=== PATIENT | female | born 1990 | race Caucasian/White ===

== ENCOUNTER 2020-11-15 01:15 | Inpatient (IN) ==
[2020-11-15] MEDS ORDERED: OXYTOCIN 30 UNITS/500 ML BAG IV PRN ×2 (02:12→08:09)
[2020-11-15 02:52] LABS: Hematocrit (blood only) 39.1 % (37-47); Hemoglobin 14.5 g/dL (12.0-16.0); Mean Corpuscular Hemoglobin 32.1 pg (25-34); Mean Corpuscular Hgb Conc 37.1 g/dL (32-36); Mean Corpuscular Volume 86.5 fL (80-100); Mean Platelet Volume 10.4 fL (7.4-10.4); Platelet Count 214 K/uL (130-400); RDW Coefficient of Variation 13.8 % (11.5-14.5); RDW Standard Deviation 42.6 fL (36.4-46.3); Red Blood Count 4.52 M/uL (4.2-5.4); White Blood Count 13.51 K/uL (4.8-10.8)
[2020-11-15] MEDS: LACTATED RINGER'S 1,000 ML IV PRN ×3 (07:28→15:11)
--- NOTE | 2020-11-15 08:03 | History & Physical Report ---
Date of Service November 15, 2020 Assessment & Plan (1) Premature rupture of membranes: Plan: 29-year-old G1, P0 at 39 weeks and 4 days of gestation presenting with premature rupture of membranes at term, vital signs stable afebrile, heart rate reassuring, GBS is negative, coronavirus testing is negative, Cervix is unfavorable, Discussed ripening of cervix with misoprostol versus starting IV oxytocin. Patient agrees with IV oxytocin and once for epidural for pain, All questions were answered, Continue to monitor closely. Admission and Anticipated Discharge Date Admission Date: November 15, 2020 History of Present Illness Primary Care Provider: Itzel Argueta MD Patient is a 29-year-old G1, P0 at 39 weeks and 4 days of gestation who was admitted by Dr. Driver for premature rupture of membranes at term. Patient had a big gush of clear fluid leaking at around midnight and kept tr ickling clear fluids. She denies vaginal bleeding, contractions, cramping nor abdominal pain. She denies fever, chills, nausea, vomiting, headaches or change in her vision. She reports good movements. Her has been uncomplicated. She has a history of intracranial hypertension with spontaneous leakage in 2014. It resolved on its own and she was cleared for epidural anesthesia if needed during labor. She has a history of cardiac ablation and follow-up exams are normal. GBS is negative. 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) Intracranial hypotension Dx 2015 r/t presumed spontaneous spinal fluid leak (per neurology, no radiographic evidence but did have strong clinical signs of intracranial hypotension) Kidney stone Surgical History History of colonoscopy History of radiofrequency ablation procedure for cardiac arrhythmia History of wisdom tooth extraction Social History Smoking Status: Never smoker Hx Alcohol Use: No Hx Substance Use: No Preferred Language: [place] Beliefs That Will Affect Care: None marital status: Current Living Situation: Spouse Other Information That Helps Us Care for You: No Feels Safe at Home: Yes Safety Concerns: Feels Safe At This Time Assistive Devices: None [employer] History No history of STDs, no history of genital herpes, chlamydia, gonorrhea. Review of Systems as per Subjective / HPI Physical Exam Constitutional: WD/WN, vitals as above well developed and well nourished Gastrointestinal (Abdomen): normal bowel sounds, soft, nontender, no hepatosplenomegaly (Gravid, bedside ultrasound is vertex, EFW 7-8 pounds) Genitourinary: normal external appearance OB Exam Abdomen: + vertex Manual OB Exam: + cervical dilation 1 cm, + cervical effacement 30% and + station (-3) OB Exam Monitor Tracing: + external uterine monitor used and + category I Results & Data ([facility]) Vital Signs (Past 12 Hours) Vital Signs Temp Pulse Resp BP 11/15/20 07:01 36.8 C 18 11/15/20 07:00 89 119/72 11/15/20 05:45 36.5 C 18 11/15/20 03:43 36.4 C L 11/15/20 01:38 36.9 C 18 11/15/20 01:29 89 119/71 Laboratory Results Lab Results 11/15/20 11/15/20 11/15/20 Range/Units 02:10 02:10 02:43 WBC 13.51 H (4.8-10.8) K/uL RBC 4.52 (4.2-5.4) M/uL Hgb 14.5 (12.0-16.0) g/dL Hct 39.1 (37-47) % MCV 86.5 (80-100) fL MCH 32.1 (25-34) pg MCHC 37.1 H (32-36) g/dL RDW Std Deviation 42.6 (36.4-46.3) fL RDW Coeff of Ananth 13.8 (11.5-14.5) % Plt Count 214 (130-400) K/uL MPV 10.4 (7.4-10.4) fL COVID-19 Eval [facility] SARS-CoV-2, RNA, NAAT NEGATIVE (NEGATIVE)
[2020-11-15] MEDS ORDERED: BUTORPHANOL TARTRATE 1 MG/ML VIAL IV PRN (08:09)
[2020-11-15] MEDS ORDERED: ONDANSETRON INJ 2 MG/ML 2 ML VIAL IV PRN (08:10)
[2020-11-15] MEDS ORDERED: ePHEDrine sulfate 50 MG/ML AMP ONE (14:14)
[2020-11-15] MEDS ORDERED: fentaNYL citrate 100 MCG/2 ML VIAL ONE (14:14)
[2020-11-15] MEDS ORDERED: SODIUM CHLORIDE 0.9% INJ 10 ML VIAL ONE (14:14)
[2020-11-15] MEDS ORDERED: BUPIVACAINE 0.25% 30 ML VIAL ONE (14:14)
[2020-11-15] MEDS ORDERED: fentaNYL 2MCG/ML ROPIVACAINE 1.25MG/ML 100 ML BAG EPI ONE (14:15)
[2020-11-15] MEDS ORDERED: NALBUPHINE HCL INJ 10 MG/ML AMP IV PRN (15:29)
[2020-11-15] MEDS ORDERED: NALOXONE HCL 0.4 MG/1 ML VIAL/CARP IV PRN (15:29)
[2020-11-15] MEDS ORDERED: NALOXONE HCL 1 MG in SODIUM CHLORIDE 0.9% 1000ML 1,000 ML IV PRN (15:29)
[2020-11-15] MEDS ORDERED: fentaNYL 2MCG/ML ROPIVACAINE 1.25MG/ML 100 ML BAG EPI PRN (15:29)
[2020-11-15] MEDS ORDERED: ePHEDrine sulfate 50 MG/ML AMP IV PRN (15:29)
[2020-11-15] MEDS ORDERED: diphenhydrAMINE 50 MG/ML VIAL IV PRN (15:29)
[2020-11-15] MEDS ORDERED: CALCIUM CARBONATE 500 MG CHEWABLE TAB PO PRN (20:10)
--- NOTE | 2020-11-15 22:14 | Obstetrical Progress Note ---
Date of Service November 15, 2020 Assessment & Plan Admission and Anticipated Discharge Date Admission Date: November 15, 2020 Subjective Patient is reevaluated. She has been comfortable with epidural. Vital signs stable afebrile, heart rate category 1, [place] with contractions every 2 to 4 minutes, Pitocin is at 20 milliunits/min. Cervix is 5 to 6 cm dilated, 70% effaced, head is at -1 station, sagittal suture is AP. We will continue to monitor closely. Results & Data ([facility]) Vital Signs (Past 12 Hours) Vital Signs Temp Pulse Resp BP Pulse Ox 11/15/20 22:07 103 H 98 11/15/20 22:02 102 H 99 11/15/20 22:01 108 H 18 104/57 L 11/15/20 21:57 88 96 11/15/20 21:52 89 98 11/15/20 21:48 90 98/54 L 11/15/20 21:47 86 98 11/15/20 21:42 97 H 97 11/15/20 21:37 87 98 11/15/20 21:32 98 H 176/76 H 98 11/15/20 21:27 94 H 98 11/15/20 21:22 91 H 97 11/15/20 21:21 37.2 C 18 11/15/20 21:18 99 H 116/53 L 11/15/20 21:17 95 H 97 11/15/20 21:12 110 H 97 11/15/20 21:07 141 H 100 11/15/20 21:02 106 H 101/59 L 99 11/15/20 21:01 18 11/15/20 20:57 76 96 11/15/20 20:52 86 98 11/15/20 20:47 79 101/57 L 97 11/15/20 20:42 80 98 11/15/20 20:37 87 98 11/15/20 20:32 85 97 11/15/20 20:31 96 H 109/64 11/15/20 20:27 107 H 98 11/15/20 20:22 88 98 11/15/20 20:17 94 H 98 11/15/20 20:16 96 H 108/63 11/15/20 20:12 84 98 11/15/20 20:07 96 H 98 11/15/20 20:02 97 H 97 11/15/20 20:01 88 113/68 11/15/20 19:57 99 H 97 11/15/20 19:52 84 97 11/15/20 19:47 105 H 97 11/15/20 19:46 98 H 113/70 11/15/20 19:42 92 H 97 11/15/20 19:37 95 H 97 11/15/20 19:32 95 H 97 11/15/20 19:29 90 109/65 11/15/20 19:27 99 H 99 11/15/20 19:26 88 119/70 11/15/20 19:23 87 114/66 11/15/20 19:22 88 99 11/15/20 19:20 95 H 118/68 11/15/20 19:17 99 H 108/64 99 11/15/20 19:14 97 H 123/67 11/15/20 19:12 95 H 100 11/15/20 19:11 98 H 116/64 11/15/20 19:08 96 H 114/70 11/15/20 19:07 95 H 100 11/15/20 19:05 37.3 C 96 H 18 112/68 11/15/20 19:02 90 112/66 100 11/15/20 18:59 96 H 111/70 11/15/20 18:57 94 H 99 11/15/20 18:56 88 112/69 11/15/20 18:53 82 118/76 11/15/20 18:52 90 100 11/15/20 18:50 90 118/75 11/15/20 18:47 87 113/73 100 11/15/20 18:44 36.6 C 85 18 109/71 11/15/20 18:42 78 100 11/15/20 18:41 87 102/65 11/15/20 18:38 92 H 111/66 11/15/20 18:37 102 H 100 11/15/20 18:35 78 108/64 11/15/20 18:32 90 107/55 L 100 11/15/20 18:29 103 H 118/70 11/15/20 18:27 88 100 11/15/20 18:26 96 H 118/68 11/15/20 18:23 90 117/77 11/15/20 18:22 89 99 11/15/20 18:20 94 H 113/73 11/15/20 18:17 105 H 18 109/67 98 11/15/20 18:14 83 113/67 11/15/20 18:12 85 98 11/15/20 18:11 70 106/64 11/15/20 18:08 115 H 100/67 11/15/20 18:07 121 H 99 11/15/20 18:05 125 H 106/69 11/15/20 18:02 92 H 106/68 100 11/15/20 17:59 74 115/64 11/15/20 17:57 121 H 99 11/15/20 17:56 88 113/67 11/15/20 17:53 71 117/68 11/15/20 17:52 80 99 11/15/20 17:50 131 H 106/64 11/15/20 17:47 90 111/64 98 11/15/20 17:44 117 H 18 121/66 11/15/20 17:42 77 98 11/15/20 17:41 99 H 117/69 11/15/20 17:38 75 124/71 11/15/20 17:37 80 96 11/15/20 17:35 78 124/75 11/15/20 17:32 95 H 128/76 97 11/15/20 17:29 78 125/77 11/15/20 17:27 110 H 99 11/15/20 17:26 86 121/71 11/15/20 17:23 74 120/71 11/15/20 17:22 75 99 11/15/20 17:20 86 122/72 11/15/20 17:17 94 H 122/72 100 11/15/20 17:14 78 18 119/72 11/15/20 17:12 77 100 11/15/20 17:11 85 119/72 11/15/20 17:08 83 116/72 11/15/20 17:07 81 100 11/15/20 17:05 113 H 106/65 11/15/20 17:02 91 H 110/69 100 11/15/20 16:59 97 H 109/69 11/15/20 16:57 96 H 100 11/15/20 16:53 88 115/66 11/15/20 16:52 82 99 11/15/20 16:50 76 109/61 08/03/21 16:47 94 H 107/59 L 100 11/15/20 16:44 108 H 18 131/77 11/15/20 16:42 90 100 11/15/20 16:41 96 H 130/81 11/15/20 16:38 95 H 124/66 11/15/20 16:37 94 H 100 11/15/20 16:35 83 122/66 11/15/20 16:32 88 120/63 98 11/15/20 16:29 93 H 125/75 11/15/20 16:27 92 H 99 11/15/20 16:26 112 H 126/77 11/15/20 16:23 86 125/71 11/15/20 16:22 85 99 11/15/20 16:20 87 124/71 11/15/20 16:17 91 H 18 128/72 98 11/15/20 16:14 88 126/69 11/15/20 16:12 89 97 11/15/20 16:11 85 128/70 11/15/20 16:08 88 126/71 11/15/20 16:07 90 98 11/15/20 16:05 97 H 124/71 11/15/20 16:02 87 123/74 99 11/15/20 15:59 104 H 124/79 11/15/20 15:57 79 98 11/15/20 15:56 94 H 118/72 11/15/20 15:53 99 H 117/73 11/15/20 15:52 93 H 98 11/15/20 15:50 98 H 110/71 11/15/20 15:47 110 H 122/74 97 11/15/20 15:44 84 18 122/72 11/15/20 15:42 107 H 99 11/15/20 15:41 93 H 115/63 11/15/20 15:38 90 117/72 11/15/20 15:37 85 99 11/15/20 15:35 81 117/75 11/15/20 15:32 92 H 122/75 99 11/15/20 15:29 101 H 121/70 11/15/20 15:27 84 99 11/15/20 15:26 109 H 131/76 11/15/20 15:23 83 131/64 11/15/20 15:22 85 99 08/0321 15:21 36.4 C L 18 11/15/20 15:20 93 H 126/73 11/15/20 15:17 92 H 112/59 L 98 11/15/20 15:14 96 H 115/60 11/15/20 15:12 91 H 98 11/15/20 15:11 94 H 115/60 11/15/20 15:07 99 H 99 11/15/20 15:05 97 H 123/69 11/15/20 15:02 86 130/69 99 11/15/20 14:59 95 H 126/76 11/15/20 14:57 100 H 100 11/15/20 14:56 81 122/67 11/15/20 14:53 81 121/83 11/15/20 14:52 102 H 99 11/15/20 13:41 36.6 C 77 16 112/70 11/15/20 12:31 86 18 117/77 11/15/20 11:50 36.8 C 80 18 118/67 11/15/20 10:31 85 16 117/72
[2020-11-15] MEDS ORDERED: NURSING L&D Epidural Breakthrough Pain Update ONE ×2 (23:43→23:45)
[2020-11-16] MEDS ORDERED: fentaNYL citrate 100 MCG/2 ML VIAL ONE (00:12)
[2020-11-16] MEDS ORDERED: LIDOCAINE 2% MPF LOCAL 5 ML VIAL INFIL ONE (00:14)
--- NOTE | 2020-11-16 00:32 | Communication Note ---
Date of Service: November 16, 2020 Called by staff for pt c/o pain. Dosed epidural with 2% lido 5cc with fentanyl 100mcg with relief. VSS.
[2020-11-16] MEDS ORDERED: MINERAL OIL 30 ML UDC ONE (04:00)
[2020-11-16] MEDS ORDERED: LIDOCAINE/EPINEPHRINE 1% 20 ML VIAL ONE (04:14)
[2020-11-16] MEDS ORDERED: LIDOCAINE 1% LOCAL 20 ML VIAL ONE (04:15)
[2020-11-16] MEDS ORDERED: ceFAZolin 2000MG 2,000 MG/15 ML SYR IV STA (04:40)
[2020-11-16] MEDS ORDERED: HYDROCORTISONE ACETATE 25 MG SUPP PR PRN (05:22)
[2020-11-16] MEDS ORDERED: MEASLES, MUMPS & RUBELLA VIRUS VIAL SQ ONE (05:22)
[2020-11-16] MEDS ORDERED: bisacodyL 10 MG SUPP PR PRN (05:22)
[2020-11-16] MEDS ORDERED: oxyCODONE/ACETAMINOPHEN 5mg/325mg TAB PO PRN (05:22)
[2020-11-16] MEDS ORDERED: SUPERCREAM 0.870% 15 GM JAR EXT PRN (05:22)
[2020-11-16] MEDS ORDERED: OXYTOCIN 30 UNITS/500 ML BAG IV PRN (05:22)
[2020-11-16] MEDS ORDERED: DIPHTHERIA/TETANUS/PERTUSSIS 0.5 ML SYR/VIAL IM ONE (05:22)
[2020-11-16] MEDS ORDERED: BENZOCAINE 20% AER SPR 82.5 GM CAN EXT PRN (05:22)
[2020-11-16] MEDS ORDERED: CLINDAMYCIN 900 MG in DEXTROSE 5% 50 ML IV ONE (05:45)
--- NOTE | 2020-11-16 05:58 | Delivery Summary ---
DATE OF DELIVERY: 11/16/2020. TIME: 04:07 a.m. DETAILS OF DELIVERY: The patient was found to be fully dilated and desired to push. She pushed for about 1-1/2 hours and delivered the head without difficulty. Shoulders were delivered with minimal traction. Baby was handed off to the mother where mouth and nose were suctioned. Cord was clamped x2 and cut and then per the patient request cord blood was collected in a special bag for cord blood banking. The vagina and perineum were checked for lacerations. There were bilateral sulcus tears in the posterior vagina extending from the lower vagina into the mid two-thirds of the vagina. Rectal exam was done and confirmed to be a second degree. Good sphincter tone was noted. A vaginal retractor was used to visualize. First, the left side was repaired. The upper corners were found. It was repaired in a running locked fashion with 2-0 Vicryl and then the right one was also repaired with another 2-0 Vicryl in a running locked fashion and the defect in the middle was repaired with 2-0 Vicryl. The perineal body muscles were reapproximated and then skin in a subcuticular fashion. Rectal exam was repeated and no sutures were felt. The placenta was found to be in the vagina, delivered spontaneously as intact and complete, and the fundus was firm. Lower segment was cleared of all clots and debris. EBL was 200 mL and the vagina was checked again. There was some oozing over the repair. Those were repaired with [id number] stitches. Then Francesca powder was applied. Vagina was packed with a sterile vaginal packing. Valadez catheter was inserted. These are to be removed at noon. Mom and baby tolerated the procedure well. Sponge, lap, and needle count was correct x2. Baby was a viable female , Apgars 8/9, weight is 3234 gr. No complications happened and I was present during whole procedure. Job ID: [id number] [facility]
[2020-11-16] MEDS: IBUPROFEN 600 MG TAB PO PRN ×4 (06:01→21:17)
--- NOTE | 2020-11-16 07:32 | Anesthesia Procedure Note ---
Date of Service November 16, 2020 Anesthesia Post Epidural Note Vital Signs Vital Signs: Temp Pulse Resp BP Pulse Ox 37.4 C 110 H 18 115/56 L 94 11/16/20 05:25 11/16/20 07:17 11/16/20 06:40 11/16/20 07:17 11/16/20 05:44 Pain Intensity Abdomen: Pain Intensity: 0 Episiotomy/Laceration: Pain Intensity: 3 Notes Mental Status: alert / awake / arousable Nausea / Vomiting: adequately controlled Pain: adequately controlled Airway Patency, RR, SpO2: stable & adequate BP & HR: stable & adequate Hydration State: stable & adequate Neuraxial Anesthesia: was administered and sensory block is resolving Anesthetic Complications: no major complications apparent and Pt Satisfied with anesthetic care Epidural: Removed without complications and With tip intact
[2020-11-16] MEDS: PRENATAL VITAMIN 1 TAB PO SCH (08:22)
[2020-11-16] MEDS: DOCUSATE SODIUM 100 MG CAP PO SCH ×2 (08:23→21:17)
[2020-11-16] MEDS: FERROUS SULFATE 325 MG TAB PO SCH (08:23)
[2020-11-16] MEDS: ACETAMINOPHEN 325 MG TAB PO PRN (08:40)
[2020-11-16] MEDS: ceFAZolin 2000MG 2,000 MG/15 ML SYR IV SCH ×2 (13:09→21:21)
[2020-11-16] MEDS: CLINDAMYCIN 900 MG in DEXTROSE 5% 50 ML IV SCH ×2 (13:35→21:59)
[2020-11-17] MEDS: IBUPROFEN 600 MG TAB PO PRN ×3 (04:13→20:40)
[2020-11-17] MEDS: CLINDAMYCIN 900 MG in DEXTROSE 5% 50 ML IV SCH (06:02)
[2020-11-17] MEDS: ceFAZolin 2000MG 2,000 MG/15 ML SYR IV SCH (06:02)
[2020-11-17 06:06] LABS: Hematocrit (blood only) 32.2 % (37-47); Hemoglobin 11.9 g/dL (12.0-16.0); Mean Corpuscular Hemoglobin 31.9 pg (25-34); Mean Corpuscular Volume 86.3 fL (80-100); Mean Platelet Volume 10.1 fL (7.4-10.4); Platelet Count 189 K/uL (130-400); RDW Standard Deviation 42.9 fL (36.4-46.3); Red Blood Count 3.73 M/uL (4.2-5.4); White Blood Count 28.01 K/uL (4.8-10.8)
[2020-11-17] MEDS: DOCUSATE SODIUM 100 MG CAP PO SCH ×2 (08:11→20:40)
[2020-11-17] MEDS: FERROUS SULFATE 325 MG TAB PO SCH (08:11)
[2020-11-17] MEDS: PRENATAL VITAMIN 1 TAB PO SCH (08:11)
--- NOTE | 2020-11-17 08:50 | Obstetrical Progress Note ---
Date of Service November 17, 2020 Subjective Ambulation: ambulating normally Voiding: no voiding problems Passing Gas:: Yes Diet Tolerance:: regular diet Lochia:: Small Feeding Type:: breast feeding Current Pain Level(1-10): 0 doing well no dizziness or lightheadedness, out of bed OK Physical Exam Constitutional WD/WN, vitals as above well developed and comfortable abdomen soft and non-tender fundus firm below U no edema neg Flaquito's for tent d/c in AM Results & Data ([facility]) Vital Signs (Past 12 Hours) Vital Signs Temp Pulse Resp BP Pulse Ox 11/17/20 04:00 36.7 C 90 18 101/58 L 11/16/20 23:35 36.4 C L 75 16 93/61 L 93 Diagnostic Findings Laboratory Results - last 72 hr 11/15/20 11/15/20 11/15/20 02:10 02:10 02:43 WBC 13.51 H RBC 4.52 Hgb 14.5 Hct 39.1 MCV 86.5 MCH 32.1 MCHC 37.1 H RDW Std Deviation 42.6 RDW Coeff of Ananth 13.8 Plt Count 214 MPV 10.4 COVID-19 Eval Order Covid19 [facility] SARS-CoV-2, RNA, NAAT NEGATIVE 11/17/20 05:44 WBC 28.01 H RBC 3.73 L Hgb 11.9 L Hct 32.2 L MCV 86.3 MCH 31.9 MCHC 37.0 H RDW Std Deviation 42.9 RDW Coeff of Ananth 14.0 Plt Count 189 MPV 10.1 COVID-19 Eval Order SARS-CoV-2, RNA, NAAT
[2020-11-17] MEDS ORDERED: bisacodyL 5 MG TABEC PO SCH (20:00)
[2020-11-18] MEDS: IBUPROFEN 600 MG TAB PO PRN ×2 (00:34→08:37)
[2020-11-18] MEDS: ACETAMINOPHEN 325 MG TAB PO PRN (00:34)
[2020-11-18 07:30] LABS: Basophils # (auto) 0.03 K/uL (0-0.2); Basophils % (auto) 0.1 %; Eosinophils # (auto) 0.17 K/uL (0-0.5); Eosinophils % (auto) 0.7 %; Hematocrit (blood only) 34.8 % (37-47); Hemoglobin 13.1 g/dL (12.0-16.0); Immature Granulocytes # (auto) 0.09 K/uL (0.00-0.02); Immature Granulocytes % (auto) 0.4 %; Lymphocytes # (auto) 3.15 K/uL (1.2-3.4); Lymphocytes % (auto) 13.7 %; Mean Corpuscular Hemoglobin 32.3 pg (25-34); Mean Corpuscular Hgb Conc 37.6 g/dL (32-36); Mean Corpuscular Volume 85.7 fL (80-100); Mean Platelet Volume 10.2 fL (7.4-10.4); Monocytes # (auto) 1.34 K/uL (0.11-0.59); Monocytes % (auto) 5.8 %; Neutrophils # (auto) 18.14 K/uL (1.4-6.5); Neutrophils % (auto) 79.3 %; Platelet Count 255 K/uL (130-400); RDW Coefficient of Variation 13.9 % (11.5-14.5); RDW Standard Deviation 42.2 fL (36.4-46.3); Red Blood Count 4.06 M/uL (4.2-5.4); White Blood Count 22.92 K/uL (4.8-10.8)
[2020-11-18] MEDS: PRENATAL VITAMIN 1 TAB PO SCH (08:37)
[2020-11-18] MEDS: DOCUSATE SODIUM 100 MG CAP PO SCH (08:37)
[2020-11-18] MEDS: FERROUS SULFATE 325 MG TAB PO SCH (08:37)
[2020-11-18] MEDS ORDERED: AMOXICILLIN/CLAVULANATE 875 MG TAB PO SCH (08:40)
--- NOTE | 2020-11-18 08:40 | Obstetrical Progress Note ---
Date of Service November 18, 2020 Assessment & Plan Admission and Anticipated Discharge Date Admission Date: November 15, 2020 Subjective Patient is seen and examined. She feels well, no complaints. Ambulating without dizziness Voiding without difficulty Tolerating regular diet with out N&V Bleeding is minimal No fever/ chills/ CP/ SOB/ N&V/ Leg pain Breast feeding without problems Vital Signs Temp Pulse Resp BP BP Pulse Ox 11/18/20 00:10 36.4 C L 83 16 110/73 99 11/17/20 23:25 36.7 C 94 H 16 112/70 98 11/17/20 20:35 37.1 C 104 H 18 110/72 99 11/17/20 15:25 36.9 C 98 H 18 115/75 99 11/17/20 11:00 36.6 C 103 H 18 107/72 Lab Results 11/15/20 11/15/20 11/15/20 Range/Units 02:10 02:10 02:43 WBC 13.51 H (4.8-10.8) K/uL RBC 4.52 (4.2-5.4) M/uL Hgb 14.5 (12.0-16.0) g/dL Hct 39.1 (37-47) % MCV 86.5 (80-100) fL MCH 32.1 (25-34) pg MCHC 37.1 H (32-36) g/dL RDW Std Deviation 42.6 (36.4-46.3) fL RDW Coeff of Ananth 13.8 (11.5-14.5) % Plt Count 214 (130-400) K/uL MPV 10.4 (7.4-10.4) fL Immature Gran % (Auto) % Neut % (Auto) % Lymph % (Auto) % [place] % (Auto) % Eos % (Auto) % Baso % (Auto) % Neut # (Auto) (1.4-6.5) K/uL Lymph # (Auto) (1.2-3.4) K/uL [place] # (Auto) (0.11-0.59) K/uL Eos # (Auto) (0-0.5) K/uL Baso # (Auto) (0-0.2) K/uL Immature Gran # (Auto) (0.00-0.02) K/uL COVID-19 Eval [facility] SARS-CoV-2, RNA, NAAT NEGATIVE (NEGATIVE) 11/17/20 11/18/20 Range/Units 05:44 06:52 WBC 28.01 H 22.92 H (4.8-10.8) K/uL RBC 3.73 L 4.06 L (4.2-5.4) M/uL Hgb 11.9 L 13.1 (12.0-16.0) g/dL Hct 32.2 L 34.8 L (37-47) % MCV 86.3 85.7 (80-100) fL MCH 31.9 32.3 (25-34) pg MCHC 37.0 H 37.6 H (32-36) g/dL RDW Std Deviation 42.9 42.2 (36.4-46.3) fL RDW Coeff of Ananth 14.0 13.9 (11.5-14.5) % Plt Count 189 255 (130-400) K/uL MPV 10.1 10.2 (7.4-10.4) fL Immature Gran % (Auto) 0.4 % Neut % (Auto) 79.3 % Lymph % (Auto) 13.7 % [place] % (Auto) 5.8 % Eos % (Auto) 0.7 % Baso % (Auto) 0.1 % Neut # (Auto) 18.14 H (1.4-6.5) K/uL Lymph # (Auto) 3.15 (1.2-3.4) K/uL [place] # (Auto) 1.34 H (0.11-0.59) K/uL Eos # (Auto) 0.17 (0-0.5) K/uL Baso # (Auto) 0.03 (0-0.2) K/uL Immature Gran # (Auto) 0.09 H (0.00-0.02) K/uL COVID-19 Eval Order SARS-CoV-2, RNA, NAAT (NEGATIVE) PE: General: Alert, orientedx3, NAD Abd: soft, NT, fundus firm, below Umbilicus Perineum intact, Lochia rubra minimal Ext; NT, no edema AP: 29 yo s/p , ppd# 2 after prolonged ROM VSS Afebrile doing well Elevated WBCC, s/p 24 hour IV AB, afebrile Will start Augmentin and repeat CBC tomorrow Continue routine care All questions were answered Discussed when to call D/C home , f/u in office Results & Data ([facility]) Vital Signs (Past 12 Hours) Vital Signs Temp Pulse Resp BP Pulse Ox 11/18/20 00:10 36.4 C L 83 16 110/73 99 11/17/20 23:25 36.7 C 94 H 16 112/70 98
== END 2020-11-18 13:55 | disposition home or self-care (01) | DRG 807 ==
LOC: OPB 01:15 → 4S1 01:17 → 4S2 11-16 08:44

== ENCOUNTER 2023-10-02 07:45 | Inpatient (IN) ==
[2023-10-02] MEDS ORDERED: CALCIUM CARBONATE 500 MG CHEWABLE TAB PO PRN (09:49)
[2023-10-02] MEDS ORDERED: ACETAMINOPHEN 325 MG TAB PO PRN ×2 (09:49→21:33)
[2023-10-02] MEDS ORDERED: LIDOCAINE 1% LOCAL 20 ML VIAL INFIL PRN (09:49)
[2023-10-02] MEDS: miSOPROStoL 50 MCG TAB PO ONE (10:05)
[2023-10-02] MEDS: LACTATED RINGER'S 1,000 ML IV PRN (10:21)
[2023-10-02] MEDS: PENICILLIN GK 6 MU in DEXTROSE 5% 250 ML IV STA (10:21)
[2023-10-02 10:31] LABS: Hematocrit (blood only) 38.3 % (37.0-47.0); Hemoglobin 14.1 g/dl (12.0-16.0); Mean Corpuscular Hemoglobin 30.5 pg (25.0-34.0); Mean Corpuscular Hgb Conc 36.8 g/dL (32.0-36.0); Mean Corpuscular Volume 82.9 fL (80.0-100.0); Mean Platelet Volume 10.8 fL (9.4-12.4); Platelet Count 219 K/uL (130-400); RDW Coefficient of Variation 13.8 % (11.5-14.5); RDW Standard Deviation 40.2 fL (36.4-46.3); Red Blood Count 4.62 M/uL (4.20-5.40)
--- OUTSIDE RECORDS SUMMARY | 2023-10-02 10:55 | External Medical Summary | Summary of Care ---
Author Name Unknown Organization [facility] Address [address] [facility] [place] [address] Phone [phone] Care Team Providers Care Rn Ed Name Role Phone Itzel Argueta MD Primary Care Provide r Reason for Visit * Reason Comments Return Visit Encounter Details Date Type Department Care Team (Late st Contact Info) Description 09/03/2023 8:30 AM EDT Office Visit Gynecology/Obst[facility] [address] [place] [address] BackerHannah CRNP [address] [place] [id number] Normal in third trimester*; SVT (supraventricular tachycardia) (HCC); Intracranial hypotension Allergies No known active allergiesdocumented as of this encounter (statuses as of 09/03/2023) Medications Medication Sig Dispensed Refills Start Date End Date Status 1 30-0.975-200 MG Oral Capsule Take 1 Cap by mouth daily. Active Vitamin D (Cholecalciferol) 10 MCG (400 UNIT) Oral Tablet Take by mouth. Active documented as of this encounter (statuses as of 09/03/2023) Active Problems Problem Noted Date Diagnosed Date Normal 02/13/2023 SVT (supraventricular tachycardia) 02/13/2023 Overview: Per [facility] pre-conception consult 2022: Recommendations: Limit caffeine. Hydrate 3 liters daily. Seek immediate medical attention in the event of cardiac symptomatology, such as worsening respiratory distress on exertion, chest pain, palpitations, or syncope. Consider notifying anesthesia upon patient's presentation to L&D for delivery. delivery reserved for obstetric indications. If symptomatic episodes increase, consider starting beta blockter therapy. Metoprolol is preferred to sotalol. Serial [facility] growth scans if an agent is used. Exposure to beta-blockers during may increase the risk for adverse events in the . If maternal use of a beta-juanpablo is needed, growth should be monitored during and the should be monitored for 48 hours after delivery for bradycardia, hypoglycemia, and respiratory depression. Intracranial hypotension 02/13/2023 Overview: Per [facility] pre-conception consult 2022: -Pt had uncomplicated epidural placement in last -Routine obstetric management; valsalva permitted during second stage (Eur J Obstet Gynecol Reprod Biol. 2015 Jalil;189:113-4). Estimated Date of Delivery Comme nts Yes 09/25/2023 Based on last me nstrual period of 12/19/2022 (Exact Date) documented as of this encounter (statuses as of 09/03/2023) Resolved Problems Problem Noted Date Diagnosed Date Resolved Date SVT (supraventricular tachycardia) 11/08/2022 02/07/2023 Overview: s/p ablation 04/30/16 for paroxysmal SVT; denies recurrence of palpitations since ablation; no meds Last Assessment & Plan: Considerations: Symptoms unlikely to recur, do not anticipate any issues - however, the following was reviewed: Treat supraventricular tachycardia (SVT) in patients the same as if the patient was not . Recommendations: Limit caffeine. Hydrate 3 liters daily. Seek immediate medical attention in the event of cardiac symptomatology, such as worsening respiratory distress on exertion, chest pain, palpitations, or syncope. Consider notifying anesthesia upon patient's presentation to L&D for delivery. delivery reserved for obstetric indications. If symptomatic episodes increase, consider starting beta blockter therapy. Metoprolol is preferred to sotalol. Serial [facility] growth scans if an agent is used. Exposure to beta-blockers during may increase the risk for adverse events in the . If maternal use of a beta-juanpablo is needed, growth should be monitored during and the should be monitored for 48 hours after delivery for bradycardia, hypoglycemia, and respiratory depression. INFORMATION 10/25/2020 12/26/2020 Overview: Pt planning private cord blood banking through [facility] Choroid plexus cysts, , affecting care of mother, antepartum 06/29/2020 09/09/2020 Last Assessment & Plan: Reviewed with patient that although choroid plexus cysts (CERTIFIED SHORTHAND REPORTER) can be associated with an increased risk for aneuploidy (particularly Trisomy 18), when choroid plexus cysts (CERTIFIED SHORTHAND REPORTER) are noted in isolation of any other abnormalities for a woman who is at low risk (age less than 35, normal genetic screening) choroid plexus cysts (CERTIFIED SHORTHAND REPORTER) are considered a normal variant of and no further work-up is recommended. They occur in 1-2% of genetically healthy pregnancies, often resolve in the third trimester, and are not associated with neurologic impairment. We discussed how markers are used to stratify a patient's risk for aneuploidy or other outcome. We discussed that the value of a marker is in what it can predict and that most soft markers are found in normal pregnancies. We discussed that, unlike defects or anomalies, markers do not need follow up care after delivery and often resolve during the . Patient had cell free DNA testing that was low risk. Supervision of other normal 04/21/2020 12/26/2020 Overview: TDAP given 08/24/2020 Intracranial hypotension 04/26/2015 Overview: Diagnosed 2014, related to spontaneous spinal fluid leak. On disability till resolved over time by late 2015. Fully functioning since. Per neurology 11/2019: she would not likely be at higher risk than anyone else for CSF leak with epidural. Patient had a consultation with anesthesiologists during last -> ok to have regional anesthesia and had uncomplicated placement without issues Last Assessment & Plan: -Pt had uncomplicated epidural placement in last -Routine obstetric management; valsalva permitted during second stage (Eur J Obstet Gynecol Reprod Biol. 2015 Jalil;189:113-4). Benign skin cyst 06/11/2013 03/11/2015 Encounter for preconception consultation 09/05/2010 02/07/2023 Overview: History of negative Invitae carrier screening secondary to genetic counseling 01/2019 for family hx of ataxia telangectasia. Last Assessment & Plan: -Patient had several questions regarding possible "Hx of short umbilical cord" in last -Reassured patient that there is no high level evidence to suggest that this is associated with adverse outcomes -Reviewed some retrospective studies that mention risks of FGR, low weight, placental abruption, other cord abnormalities -However, reassured patient that this may not be likely to recur, and also that we do not know, from pathology, that her cord was truly <10th % [this is only physician reported] -There is no additional ultrasound or surveillance needed given this history Encouraged pt to continue healthy lifestyle habits [diet, exercise, abstain from tobacco/illicit substances] Varicella without complication 02/12/2003 03/11/2015 History of radiofrequency ab lation (RFA) procedure for cardiac arrhythmia 021 Overview: s/p ablation 04/30/16 for paroxysmal SVT; denies recurrence of palpitations since ablation; no meds. Per cardiology 04/2020: I do not believe any additional cardiac testing is indicated at this time. She should do well with her and can deliver vaginally if she chooses. I will see her on an as-needed basis if something should change clinically before she delivers. Last Assessment & Plan: Recommendations: 1. Please follow-up with cardiology on 05/12/20; cardiology to order follow-up EKG. documented as of this encounter (statuses as of 09/03/2023) Immunizations Name Administration Dates Next Due COVID-19 mRNA, LNP-s, No Pre serve, 2-Dose Series (Moderna) 12/23/2020 Meningococcal Conjugate Vacc ine (Menactra/Menveo) 09/24/2006 PPD 09/26/2012 Seasonal Influenza, PF, 6 M & above, IM , (FluLaval or Fluzone) 03/03/2020 TDAP (age 10 and older)(Boostrix) 07/03/2023,03/2021,12/25/2018 TDAP (age 11 and older)(Adacel) 09/24/2006 documented as of this encounter Social History Tobacco Use Types Packs/Day Years Used Date Smoking Tobacco: Never Smokeless Tobacco: Never Alcohol Use Standard Drinks/Week Comments No 0 (1 standard drink = 0.6 oz pur e alcohol) PHQ-2 Answer Date Recorded PHQ-2 Score 0 12/25/2018 Hunger Vital Sign Answer Date Recorded Within the past 12 months, y ou worried that your food would run out before you got the money to buy more. Never true 04/23/19 24 Within the past 12 months, t he food you bought just didn't last and you didn't have money to get more. Never true 04/23/2023 [place] Depression Scale Answer Date Recorded [place] Depression Scale Total 2 07/31/2023 The thought of harming myself has occurred to me . Never 07/31/2023 Estimated Date of Delivery Comme nts Yes 09/25/2023 Based on last me nstrual period of 12/19/2022 (Exact Date) Sex and Gender Information Value Date Recorded Sex Assigned at Female 11/06/2022 12:16 PM EDT Gender Identity Female 11/06/2022 12:16 PM EDT Sexual Orientation Straight 11/06/2022 12 :16 PM EDT Job Start Date Occupation Industry Not on file Not on file Not on file documented as of this encounter Last Filed Vital Signs Vital Sign Reading Time Taken Comments Blood Pressure 108/74 09/03/2023 8:35 AM EDT Pulse - - Temperature - - Respiratory Rate - - Oxygen Saturation - - Inhaled Oxygen Concentration - - Weight 75.3 kg (166 lb) 09/03/2023 8:35 AM EDT Height - - Body Mass Index 30.36 08/26/2023 9:00 AM EDT documented in this encounter Progress Notes * Hannah Martinez CRNP - 09/03/2023 9:10 AM EDT 36w6d GBS today. Baby moving well, no ctx/leaking or bleeding. Daughter was hospitalized in [place] over the weekend for an eye injury - home now and doing well, though it was an understandably traumatic incident. Aimee is processing this and plans to meet with a counselor. Good support at home. Hard time sleeping, keeps replaying images from the accidentin her head - ok to take Unisom or Benadryl. Encouraged to reach out if needed. Return in 1 week. Finishing Frame Runner Documentation Provider requested construction administrative assistant. Name of construction administrative assistant: ABDI Cook documented in this encounter Nursing Notes * Priyanka Valverde LPN - 09/03/2023 8:35 AM EDT 36w6d Denies vaginal bleeding/rom + movement documented in this encounter Plan of Treatment Upcoming Encounters Date Type Department Care Team (Late st Contact Info) Description 09/12/2023 9:00 AM EDT Office Visit Gynecology/Obstetrics [facility] [address] [address] Senait Abel CRNP [address] [place] [address] Pending Results Name Type Priority Associated Diagnoses Date /Time GROUP B STREP CULTURE/PCR Lab Routine Normal in third trimester 09/03/2023 9:07 AM EDT Scheduled Orders Name Type Priority Associated Diagnoses Orde r Schedule GROUP B STREP CULTURE/PCR Lab Routine Normal in third trimester Expected: 09/03/2023, Expires: 09/02/2024 Health Maintenance Due Date Last Done Comments Depression Screening 12/26/2019 12/25/2018 COVID-19 Vaccine ( season) 2022 12/23/2020 Influenza Vaccine (FLU shot) (Season Ended) 2023 03/03/2020 Pap Smear 11/07/2025 11/07/2022, 12/14, 01/01/2020 Cervical Cancer Screening 11/08/2027 HPV/Co-Test 11/08/2027 11/07/2022 DTaP,Tdap,and Td Vaccines (7 - Td or Tdap) 07/02/2033 07/03/2023, 08/24/2020, 12/25/2018, Additional history exists Hepatitis B Completed 01/01/1992, 07/15, 07/01/1991 MENINGOCOCCAL (MENACTRA/MENVEO) Completed 09/24/2006 GARDASIL-HPV IMMUNIZATION SERIES Aged Out No longer eligible based on patient's age to complete this topic Pneumococcal Vaccine: Pediatrics (0 to 5 Years) and At-Risk Patients (6 to 64 Years) Aged Out No longer eligible based on patient's age to complete this topic documented as of this encounter Medical Devices Not on filedocumented as of this encounter Visit Diagnoses Diagnosis Normal in third trimester- Primary SVT (supraventricular tachycardia) (HCC) Other specified cardiac dysrhythmias Intracranial hypotension Other conditions of brain documented in this encounter Care Teams Rn Ed Relationship Specialty Start Date End Date Itzel Argueta MD PCP - General Family Medicine 09/26/12 documented as of this encounter
--- OUTSIDE RECORDS SUMMARY | 2023-10-02 10:55 | External Medical Summary | Summary of Care ---
Author Name Unknown Organization [facility] Address [address] [place] [facility] [place] [place] [address] Phone [phone] Care Team Providers Care Menagerie Caretaker Name Role Phone Itzel Argueta MD Primary Care Provide r Reason for Visit * Reason Comments Return Visit Encounter Details Date Type Department Care Team (Latest Contact Info) Description 09/23/2023 1:00 PM EDT [facility] [address] [address] Gustvao Ga MD [address] [address] Normal in third trimester*; SVT (supraventricular tachycardia) (HCC); Intracranial hypotension; GBS (group B Streptococcus carrier), +RV culture, currently Allergies No known active allergiesdocumented as of this encounter (statuses as of 09/23/2023) Medications Medication Sig Dispensed Refills Start Date End Date Status 1 30-0.975-200 MG Oral Capsule Take 1 Cap by mouth daily. Active Vitamin D (Cholecalciferol) 10 MCG (400 UNIT) Oral Tablet Take by mouth. Active documented as of this encounter (statuses as of 09/23/2023) Active Problems Problem Noted Date Diagnosed Date GBS (group B Streptococcus c arrier), +RV culture, currently 09/04/2023 Normal 02/13/2023 SVT (supraventricular tachycardia) 02/13/2023 Overview: Per [facility] pre-conception consult 2022: Recommendations: Limit caffeine. Hydrate 3 liters daily. Seek immediate medical attention in the event of cardiac symptomatology, such as worsening respiratory distress on exertion, chest pain, palpitations, or syncope. Consider notifying anesthesia upon patient's presentation to L&D for delivery. delivery reserved for obstetric indications. If symptomatic episodes increase, consider starting beta blockter therapy. Metoprolol is preferred to sotalol. Serial [facility] growth scans if an agent is used. Exposure to beta-blockers during may increase the risk for adverse events in the . If maternal use of a beta-juanpablo is needed, growth should be monitored during and the should be monitored for 48 hours after delivery for bradycardia, hypoglycemia, and respiratory depression. Intracranial hypotension 02/13/2023 Overview: Per [facility] pre-conception consult 2022: -Pt had uncomplicated epidural placement in last -Routine obstetric management; valsalva permitted during second stage (Eur J Obstet Gynecol Reprod Biol. 2015 Jalil;189:113-4). Estimated Date of Delivery Comme nts Yes 09/25/2023 Based on last me nstrual period of 12/19/2022 (Exact Date) documented as of this encounter (statuses as of 09/23/2023) Resolved Problems Problem Noted Date Diagnosed Date [...] with patient that although choroid plexus cysts (MINE BOSS) can be associated with an increased risk for aneuploidy (particularly Trisomy 18), when choroid plexus cysts (MINE BOSS) are noted in isolation of any other abnormalities for a woman who is at low risk (age less than 35, normal genetic screening) choroid plexus cysts (MINE BOSS) are considered a normal variant of and [...] as of this encounter (statuses as of 09/23/2023) Immunizations Name Administration Dates Next Due COVID-19 mRNA, LNP-s, No Pre serve, 2-Dose Series (Moderna) 12/23/2020 Meningococcal Conjugate Vacc ine (Menactra/Menveo) 09/24/2006 PPD 09/26/2012 Seasonal Influenza, PF, 6 M & above, IM , (FluLaval or Fluzone) 03/03/2020 TDAP (age 10 and older)(Boostrix) 07/03/2023,03/2021,12/25/2018 TDAP, Age 7 and older, IM (Adacel) 09/24/2006 documented as of this encounter Social [...] money to get more. Never true 04/23/2023 [place] Depression Scale Answer Date Recorded [place] Depression Scale Total 2 07/31/2023 The thought [...] Sign Reading Time Taken Comments Blood Pressure 98/64 09/23/2023 1:02 PM EDT Pulse - - Temperature - - Respiratory Rate - - Oxygen Saturation - - Inhaled Oxygen Concentration - - Weight 76.2 kg (168 lb) 09/23/2023 1:02 PM EDT Height - - Body Mass Index 30.73 08/26/2023 9:00 AM EDT documented in this encounter Progress Notes * Gustavo Ga MD - 09/23/2023 1:13 PM EDT Pt doing well No complaints RTc 1 week * Shae Mark MED ASSIST - 09/23/2023 1:02 PM EDT 39w5d No concerns Vaginal bleeding: no ROM: no movement: present Contractions: no Nausea: no Vomiting: no Headaches: no Cramping/diarrhea yesterday documented in this encounter Plan of Treatment Health Maintenance Due Date Last Done Comments [...] dysrhythmias Intracranial hypotension Other conditions of brain GBS (group B Streptococcus carrier), +RV culture, currently Supervision of other high-risk documented in this encounter Care Teams Menagerie Caretaker Relationship Specialty Start Date End Date Itzel Argueta MD PCP - General Family Medicine 09/26/12 documented as of this encounter
--- OUTSIDE RECORDS SUMMARY | 2023-10-02 10:55 | External Medical Summary | Summary of Care ---
Author Name Unknown Organization [facility] Address [address] [facility] [address] [place] [address] Phone [phone] Care Team Providers Care Detective Bureau Chief Name Role Phone Itzel Argueta MD Primary Care Provide r Reason for Visit * Reason Comments Return Visit Encounter Details Date Type Department Care Team (Late st Contact Info) Description 08/14/2023 11:45 AM EDT Office Visit Gynecology/Obst[facility] [address] [place] [address] BackHannah hammonds CRNP [address] [place] [address] Normal in third trimester*; SVT (supraventricular tachycardia) (HCC); Intracranial hypotension Allergies No known active allergiesdocumented as of this encounter (statuses as of 08/14/2023) Medications Medication Sig Dispensed Refills Start Date End Date Status 1 30-0.975-200 MG Oral Capsule Take 1 Cap by mouth daily. 0 Active Vitamin D (Cholecalciferol) 10 MCG (400 UNIT) Oral Tablet Take by mouth. 0 Active documented as of this encounter (statuses as of 08/14/2023) Active Problems Problem Noted Date Diagnosed Date Normal 02/13/2023 SVT (supraventricular tachycardia) 02/13/2023 Overview: Per [facility] pre-conception consult 2022: Recommendations: Limit caffeine. Hydrate 3 liters daily. Seek immediate medical attention in the event of cardiac symptomatology, such as worsening respiratory distress on exertion, chest pain, palpitations, or syncope. Consider notifying anesthesia upon patient's presentation to L&D for delivery. delivery reserved for obstetric indications. If symptomatic episodes increase, consider starting beta blockter therapy. Metoprolol is preferred to sotalol. Serial [facility] growth scans if an agent is used. Exposure to beta-blockers during may increase the risk for adverse events in the . If maternal use of a beta-juanpablo is needed, growth should be monitored during and the should be monitored for 48 hours after delivery for bradycardia, hypoglycemia, and respiratory depression. Intracranial hypotension 02/13/2023 Overview: Per [facility] pre-conception consult 2022: -Pt had uncomplicated epidural placement in last -Routine obstetric management; valsalva permitted during second stage (Eur J Obstet Gynecol Reprod Biol. 2015 Jalil;189:113-4). Estimated Date of Delivery Comme nts Yes 09/25/2023 Based on last me nstrual period of 12/19/2022 (Exact Date) documented as of this encounter (statuses as of 08/14/2023) Resolved Problems Problem Noted Date Diagnosed Date [...] with patient that although choroid plexus cysts (NECK BAND MAKER) can be associated with an increased risk for aneuploidy (particularly Trisomy 18), when choroid plexus cysts (NECK BAND MAKER) are noted in isolation of any other abnormalities for a woman who is at low risk (age less than 35, normal genetic screening) choroid plexus cysts (NECK BAND MAKER) are considered a normal variant of and [...] as of this encounter (statuses as of 08/14/2023) Immunizations Name Administration Dates Next Due COVID-19 [...] money to get more. Never true 04/23/2023 [place] Depression Scale Answer Date Recorded [place] Depression Scale Total 2 07/31/2023 The thought [...] Sign Reading Time Taken Comments Blood Pressure 118/64 08/14/2023 11:31 AM EDT Pulse - - Temperature - - Respiratory Rate - - Oxygen Saturation - - Inhaled Oxygen Concentration - - Weight 74.4 kg (164 lb) 08/14/2023 11:31 AM EDT Height - - Body Mass Index 30 07/31/2023 8:54 AM EDT documented in this encounter Progress Notes * Hannah Martinez CRNP - 08/14/2023 11:38 AM EDT 34w0d Feeling well. Baby is active. Denies ctx, leaking, bleeding. Has confirmation that her breast pump was ordered. Baby is cephalic by Dur[place]'lucretia. Labor instructions provided; since she [place] an hour from the hospital, recommend calling with ctx 7-10 mins apart. Discussed GBS swab to be completed at 36 week visit. planning a vasectomy . ABDI Lewis * Priyanka Valverde LPN - 08/14/2023 11:31 AM EDT 34w0d Denies vaginal bleeding/rom + movement Labor instructions given documented in this encounter Plan of Treatment Upcoming Encounters Date Type Department Care Team (Late st Contact Info) Description 08/26/2023 9:00 AM EDT Office Visit Gynecology/Obstetrics [facility] [address] [place] [address] Syl Hamlin PA-C [address] [place] [address] Health Maintenance Due Date Last Done Comments [...] brain documented in this encounter Care Teams Detective Bureau Chief Relationship Specialty Start Date End Date Itzel Argueta MD PCP - General Family Medicine 09/26/12 documented as of this encounter
--- OUTSIDE RECORDS SUMMARY | 2023-10-02 10:55 | External Medical Summary | Summary of Care ---
Author Name Unknown Organization [facility] Address [address] [facility] [place] [address] Phone [phone] Care Team Providers Care Agricultural Research Technologist Name Role Phone Itzel Argueta MD Primary Care Provide r Reason for Visit * Reason Comments Return Visit Encounter Details Date Type Department Care Team (Late st Contact Info) Description 09/16/2023 2:00 PM EDT Office Visit Gynecology/Obstetri víctor Rowlandlucretia Jensen [address] [facility] [place] [address] BackHannah hammonds CRNP [address] [facility] [place] [address] Normal in third trimester*; SVT (supraventricular tachycardia) (HCC); Intracranial hypotension; GBS (group B Streptococcus carrier), +RV culture, currently Allergies No known active allergiesdocumented as of this encounter (statuses as of 09/16/2023) Medications Medication Sig Dispensed Refills Start Date End Date Status 1 30-0.975-200 MG Oral Capsule Take 1 Cap by mouth daily. Active Vitamin D (Cholecalciferol) 10 MCG (400 UNIT) Oral Tablet Take by mouth. Active documented as of this encounter (statuses as of 09/16/2023) Active Problems Problem Noted Date Diagnosed Date GBS (group B Streptococcus c michelle), +RV culture, currently 09/04/2023 Normal 02/13/2023 SVT (supraventricular tachycardia) 02/13/2023 Overview: Per [facility] pre-conception consult 2022: Recommendations: Limit caffeine. Hydrate 3 liters daily. Seek immediate medical attention in the event of cardiac symptomatology, such as worsening respiratory distress on exertion, chest pain, palpitations, or syncope. Consider notifying anesthesia upon patient's presentation to L&D for delivery. delivery reserved for obstetric indications. If symptomatic episodes increase, consider starting beta blockter therapy. Metoprolol is preferred to sotalol. Serial [facility] growth scans if an agent is used. Exposure to beta-blockers during may increase the risk for adverse events in the . If maternal use of a beta-juanpablo is needed, growth should be monitored during and the should be monitored for 48 hours after delivery for bradycardia, hypoglycemia, and respiratory depression. Intracranial hypotension 02/13/2023 Overview: Per [facility] pre-conception consult 2022: -Pt had uncomplicated epidural placement in last -Routine obstetric management; valsalva permitted during second stage (Eur J Obstet Gynecol Reprod Biol. 2015 Jalil;189:113-4). Estimated Date of Delivery Comme nts Yes 09/25/2023 Based on last me nstrual period of 12/19/2022 (Exact Date) documented as of this encounter (statuses as of 09/16/2023) Resolved Problems Problem Noted Date Diagnosed Date [...] with patient that although choroid plexus cysts (NUCLEAR FUELS RESEARCH ENGINEER) can be associated with an increased risk for aneuploidy (particularly Trisomy 18), when choroid plexus cysts (NUCLEAR FUELS RESEARCH ENGINEER) are noted in isolation of any other abnormalities for a woman who is at low risk (age less than 35, normal genetic screening) choroid plexus cysts (NUCLEAR FUELS RESEARCH ENGINEER) are considered a normal variant of and [...] as of this encounter (statuses as of 09/16/2023) Immunizations Name Administration Dates Next Due COVID-19 [...] money to get more. Never true 04/23/2023 [place] Depression Scale Answer Date Recorded [place] Depression Scale Total 2 07/31/2023 The thought [...] Sign Reading Time Taken Comments Blood Pressure 102/68 09/16/2023 1:56 PM EDT Pulse - - Temperature - - Respiratory Rate - - Oxygen Saturation - - Inhaled Oxygen Concentration - - Weight 76.2 kg (168 lb) 09/16/2023 1:56 PM EDT Height - - Body Mass Index 30.73 08/26/2023 9:00 AM EDT documented in this encounter Progress Notes * Hannah Martinez CRNP - 09/16/2023 2:07 PM EDT 38w5d Baby moving well, no regular ctx or leaking/bleeding. 41 week induction scheduled, reviewed information. 1 week return ABDI eLwis * Priyanka Valverde LPN - 09/16/2023 1:56 PM EDT 38w5d Denies vaginal bleeding/rom + movement No new concerns documented in this encounter Plan of Treatment [...] high-risk documented in this encounter Care Teams Agricultural Research Technologist Relationship Specialty Start Date End Date Itzel Argueta MD PCP - General Family Medicine 09/26/12 documented as of this encounter
--- OUTSIDE RECORDS SUMMARY | 2023-10-02 10:55 | External Medical Summary | Summary of Care ---
Author Name Unknown Organization [facility] Address [address] [place] [address] Phone [phone] Care Team Providers Care Investigations Chief Name Role Phone Itzel Argueta MD Primary Care Provide r Encounter Details Date Type Department Care Team (Late st Contact Info) Description 08/20/2023 Telephone Gynecology/Obstetrics [facility] [address] [facility] [place] [address] Camila Huynh MD [address] [facility] [place] [address] Allergies No known active allergiesdocumented as of this encounter (statuses as of 08/20/2023) Medications Medication Sig Dispensed Refills Start Date End Date Status 1 30-0.975-200 MG Oral Capsule Take 1 Cap by mouth daily. 0 Active Vitamin D (Cholecalciferol) 10 MCG (400 UNIT) Oral Tablet Take by mouth. 0 Active documented as of this encounter (statuses as of 08/20/2023) Active Problems Problem Noted Date Diagnosed Date Normal 02/13/2023 SVT (supraventricular tachycardia) 02/13/2023 Overview: Per [facility] pre-conception consult 2022: Recommendations: Limit caffeine. Hydrate [...] respiratory depression. Intracranial hypotension 02/13/2023 Overview: Per [facility] pre-conception consult 2022: -Pt had uncomplicated epidural placement in last -Routine obstetric management; valsalva permitted during second stage (Eur J Obstet Gynecol Reprod Biol. 2015 Jalil;189:113-4). Estimated Date of Delivery Comme nts Yes 09/25/2023 Based on last me nstrual period of 12/19/2022 (Exact Date) documented as of this encounter (statuses as of 08/20/2023) Resolved Problems Problem Noted Date Diagnosed Date [...] with patient that although choroid plexus cysts (NURSING CENTER TUTOR) can be associated with an increased risk for aneuploidy (particularly Trisomy 18), when choroid plexus cysts (NURSING CENTER TUTOR) are noted in isolation of any other abnormalities for a woman who is at low risk (age less than 35, normal genetic screening) choroid plexus cysts (NURSING CENTER TUTOR) are considered a normal variant of and [...] as of this encounter (statuses as of 08/20/2023) Immunizations Name Administration Dates Next Due COVID-19 [...] money to get more. Never true 04/23/2023 [place] Depression Scale Answer Date Recorded [place] Depression Scale Total 2 07/31/2023 The thought [...] on file documented as of this encounter Miscellaneous Notes * Telephone Encounter - Nayla Melo RN - 08/20/2023 4:24 PM EDT Give patient reassurance, call if bleeding is heavier or other signs of labor Thanks Called patient and made aware. She will continue to monitor things and call back with any new concerns. 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 Advised to call back with any changes. * Telephone Encounter - Nayla Melo RN - 08/20/2023 4:10 PM EDT patient calling in with Vaginal bleeding. She is 34w6d today. states she just used the restroom and there was a small amount of bleeding (spotting) on toilet paper and in her underwear. No blood in the toilet. This is the first time this has happened. Denies any other fluid leaking + FM today. but Cannot say for sure if she has felt quite 10 movements in the last 2 hours. Patient not having severe pain or cramping at this time No recent intercourse or pelvic exams. Please review/ advise further. No hx of labor. documented in this encounter Plan of Treatment Upcoming Encounters Date Type Department Care Team (Late st Contact Info) Description 08/26/2023 9:00 AM EDT Office Visit Gynecology/Obstetrics Claude Jensen [address] [place] [address] Syl Hamlin PA-C [address] [place] [address] Health Maintenance Due Date Last Done Comments [...] Not on filedocumented as of this encounter Care Teams Investigations Chief Relationship Specialty Start Date End Date Itzel Argueta MD PCP - General Family Medicine 09/26/12 documented as of this encounter
--- OUTSIDE RECORDS SUMMARY | 2023-10-02 10:55 | External Medical Summary | Summary of Care ---
Author Name Unknown Organization [facility] Address [address] [place] [facility] [place] [address] Phone [phone] Care Team Providers Care Infectious Waste Technician Name Role Phone Itzel Argueta MD Primary Care Provide r Reason for Visit * Reason Comments Return Visit Encounter Details Date Type Department Care Team (Late st Contact Info) Description 07/16/2023 8:30 AM EDT Office Visit Gynecology/Obstetric [facility] [address] [place] [address] Ammy Renteria MD [address] [place] [address] 29 weeks gestation of *; SVT (supraventricular tachycardia) (HCC); Intracranial hypotension Allergies No known active allergiesdocumented as of this encounter (statuses as of 07/16/2023) Medications Medication Sig Dispensed Refills Start Date End Date Status 1 30-0.975-200 MG Oral Capsule Take 1 Cap by mouth daily. 0 Active Vitamin B-6 25 MG Oral Tablet Take by mouth. 0 Active Vitamin D (Cholecalciferol) 10 MCG (400 UNIT) Oral Tablet Take by mouth. 0 Active documented as of this encounter (statuses as of 07/16/2023) Active Problems Problem Noted Date Diagnosed Date Normal 02/13/2023 SVT (supraventricular tachycardia) 02/13/2023 Overview: Per [facility] pre-conception consult 2022: Recommendations: Limit caffeine. Hydrate 3 liters daily. Seek immediate medical attention in the event of cardiac symptomatology, such as worsening respiratory distress on exertion, chest pain, palpitations, or syncope. Consider notifying anesthesia upon patient's presentation to L&D for delivery. delivery reserved for obstetric indications. If symptomatic episodes increase, consider starting beta blockter therapy. Metoprolol is preferred to sotalol. Serial [facility] growth scans if an agent is used. Exposure to beta-blockers during may increase the risk for adverse events in the . If maternal use of a beta-juanpablo is needed, growth should be monitored during and the should be monitored for 48 hours after delivery for bradycardia, hypoglycemia, and respiratory depression. Intracranial hypotension 02/13/2023 Overview: Per [facility] pre-conception consult 2022: -Pt had uncomplicated epidural placement in last -Routine obstetric management; valsalva permitted during second stage (Eur J Obstet Gynecol Reprod Biol. 2015 Jalil;189:113-4). Estimated Date of Delivery Comme nts Yes 09/25/2023 Based on last me nstrual period of 12/19/2022 (Exact Date) documented as of this encounter (statuses as of 07/16/2023) Resolved Problems Problem Noted Date Diagnosed Date [...] with patient that although choroid plexus cysts (HAND COOPER HELPER) can be associated with an increased risk for aneuploidy (particularly Trisomy 18), when choroid plexus cysts (HAND COOPER HELPER) are noted in isolation of any other abnormalities for a woman who is at low risk (age less than 35, normal genetic screening) choroid plexus cysts (HAND COOPER HELPER) are considered a normal variant of and [...] as of this encounter (statuses as of 07/16/2023) Immunizations Name Administration Dates Next Due COVID-19 [...] money to get more. Never true 04/23/2023 [place] Depression Scale Answer Date Recorded [place] Depression Scale Total 5 12/05/2020 The thought of harming myself has occurred to me . Never 12/05/2020 Estimated Date of Delivery Comme nts Yes [...] Sign Reading Time Taken Comments Blood Pressure 102/60 07/16/2023 8:31 AM EDT Pulse - - Temperature - - Respiratory Rate - - Oxygen Saturation - - Inhaled Oxygen Concentration - - Weight 71.7 kg (158 lb) 07/16/2023 8:31 AM EDT Height 157.5 cm (5' 2") 07/16/2023 8:31 AM EDT Body Mass Index 28.9 07/16/2023 8:31 AM EDT documented in this encounter Progress Notes * Ammy Renteria MD - 07/16/2023 8:43 AM EDT Aimee Lopez is a 32 year old female here for her routine OB appointment at 29w6d Her Estimated Date of Delivery: 09/25/23 REVIEW OF SYSTEMS: She affirms movement. Denies vaginal bleeding, LOF, contractions, N/V, headaches PHYSICAL EXAM: Filed Vitals: 07/16/23 0831 BP: 102/60 Weight: 71.7 kg (158 lb) Height: 1.575 m (5' 2") +FHT 145 bpm Fundal height 3 1 cm ASSESSMENT/PLAN: (I47.10) SVT (supraventricular tachycardia) (HCC) Plan: Patient states that she had an ablation for the SVT. (G96.810) Intracranial hypotension Plan: Patient has no concerns with regards to intracranial hypertension at this time. (Z3A.29) 29 weeks gestation of (primary encounter diagnosis) Plan: - labor precautions and kick counts reviewed - RTO in 2 weeks Ammy Renteria MD * Wilda Diehl LPN - 07/16/2023 8:31 AM EDT 29w6d Denies any concerns documented in this encounter Plan of Treatment Upcoming Encounters Date Type Department Care Team (Late st Contact Info) Description 07/31/2023 9:00 AM EDT Office Visit Gynecology/Obstetrics [facility] [address] [place] [address] Rhina Liao CNM [address] [place] [address] [place] [address] Health Maintenance Due Date Last Done Comments [...] as of this encounter Visit Diagnoses Diagnosis 29 weeks gestation of - Primary state, incidental SVT (supraventricular tachycardia) (HCC) Other specified cardiac dysrhythmias Intracranial hypotension Other conditions of brain documented in this encounter Care Teams Infectious Waste Technician Relationship Specialty Start Date End Date Itzel Argueta MD PCP - General Family Medicine 09/26/12 documented as of this encounter
--- OUTSIDE RECORDS SUMMARY | 2023-10-02 10:55 | External Medical Summary | Summary of Care ---
Author Name Unknown Organization [facility] Address [address] [place] [facility] [place] [address] Phone [phone] Care Team Providers Care Package Checker Name Role Phone Itzel Argueta MD Primary Care Provide r Reason for Visit * Reason Comments Return Visit Encounter Details Date Type Department Care Team (Latest Contact Info) Description 09/12/2023 9:00 AM EDT Office Visit Gynecology/Obstetric s [facility] [address] [place] [address] Senait Abel CRNP [address] [facility] [place] [address] Normal in third trimester*; SVT (supraventricular tachycardia) (HCC); Intracranial hypotension; GBS (group B Streptococcus carrier), +RV culture, currently Allergies No known active allergiesdocumented as of this encounter (statuses as of 09/12/2023) Medications Medication Sig Dispensed Refills Start Date End Date Status 05 14-0.975-200 MG Oral Capsule Take 1 Cap by mouth daily. Active Vitamin D (Cholecalciferol) 10 MCG (400 UNIT) Oral Tablet Take by mouth. Active documented as of this encounter (statuses as of 09/12/2023) Active Problems Problem Noted Date Diagnosed Date GBS (group B Streptococcus c arrier), +RV culture, currently 09/04/2023 Normal 02/13/2023 SVT (supraventricular tachycardia) 02/13/2023 Overview: Per [facility] pre-conception consult 2022: Recommendations: Limit caffeine. Hydrate 3 liters daily. Seek immediate medical attention in the event of cardiac symptomatology, such as worsening respiratory distress on exertion, chest pain, palpitations, or syncope. Consider notifying anesthesia upon patient's presentation to L&D for delivery. delivery reserved for obstetric indications. If symptomatic episodes increase, consider starting beta blockter therapy. Metoprolol is preferred to sotalol. Serial [facility] growth scans if an agent is used. Exposure to beta-blockers during may increase the risk for adverse events in the . If maternal use of a beta-juanpablo is needed, growth should be monitored during and the should be monitored for 48 hours after delivery for bradycardia, hypoglycemia, and respiratory depression. Intracranial hypotension 02/13/2023 Overview: Per [facility] pre-conception consult 2022: -Pt had uncomplicated epidural placement in last -Routine obstetric management; valsalva permitted during second stage (Eur J Obstet Gynecol Reprod Biol. 2015 Jalil;189:113-4). Estimated Date of Delivery Comme nts Yes 09/25/2023 Based on last me nstrual period of 12/19/2022 (Exact Date) documented as of this encounter (statuses as of 09/12/2023) Resolved Problems Problem Noted Date Diagnosed Date [...] with patient that although choroid plexus cysts (LINE MAINTAINER) can be associated with an increased risk for aneuploidy (particularly Trisomy 18), when choroid plexus cysts (LINE MAINTAINER) are noted in isolation of any other abnormalities for a woman who is at low risk (age less than 35, normal genetic screening) choroid plexus cysts (LINE MAINTAINER) are considered a normal variant of and [...] as of this encounter (statuses as of 09/12/2023) Immunizations Name Administration Dates Next Due COVID-19 [...] money to get more. Never true 04/23/2023 [place] Depression Scale Answer Date Recorded [place] Depression Scale Total 2 07/31/2023 The thought [...] Sign Reading Time Taken Comments Blood Pressure 110/70 09/12/2023 8:57 AM EDT Pulse - - Temperature - - Respiratory Rate - - Oxygen Saturation - - Inhaled Oxygen Concentration - - Weight 75 kg (165 lb 6.4 oz) 09/12/2023 8:57 AM EDT Height - - Body Mass Index 30.25 08/26/2023 9:00 AM EDT documented in this encounter Progress Notes * Senait Abel CRNP - 09/12/2023 9:20 AM EDT 38w1d Questions regarding GBS, discussed. No other concerns. Baby is active. Denies contractions, bleeding, LOF. ABDI [place] * Shae Mark MED ASSIST - 09/12/2023 8:57 AM EDT 38w1d Denies vaginal bleeding/rom + movements Denies nausea/vomiting/headache Questions about GBS documented in this encounter Plan of Treatment Upcoming Encounters Date Type Department Care Team (Late st Contact Info) Description 09/16/2023 2:00 PM EDT Office Visit Gynecology/Obstetrics [facility] [address] [place] [address] BackerHannah CRNP [address] [place] [address] Health Maintenance Due Date Last Done Comments [...] high-risk documented in this encounter Care Teams Package Checker Relationship Specialty Start Date End Date Itzel Argueta MD PCP - General Family Medicine 09/26/12 documented as of this encounter
--- OUTSIDE RECORDS SUMMARY | 2023-10-02 10:55 | External Medical Summary | Summary of Care ---
Author Name Unknown Organization [facility] Address [address] [place] [place] [facility] [place] [address] Phone [phone] Care Team Providers Care Chief Scientist Name Role Phone Itzel Argueta MD Primary Care Provide r Reason for Visit * Reason Comments Return Visit Encounter Details Date Type Department Care Team (Late st Contact Info) Description 08/26/2023 9:00 AM EDT Office Visit Gynecology/Obstetric s [facility] [address] [place] [address] Syl Hamlin PA-C [address] [place] [address] Normal in third trimester*; SVT (supraventricular tachycardia) (HCC); Intracranial hypotension Allergies No known active allergiesdocumented as of this encounter (statuses as of 08/26/2023) Medications Medication Sig Dispensed Refills Start Date End Date Status 1 30-0.975-200 MG Oral Capsule Take 1 Cap by mouth daily. 0 Active Vitamin D (Cholecalciferol) 10 MCG (400 UNIT) Oral Tablet Take by mouth. 0 Active documented as of this encounter (statuses as of 08/26/2023) Active Problems Problem Noted Date Diagnosed Date Normal 02/13/2023 SVT (supraventricular tachycardia) 02/13/2023 Overview: Per [facility] pre-conception consult 2022: Recommendations: Limit caffeine. Hydrate 3 liters daily. Seek immediate medical attention in the event of cardiac symptomatology, such as worsening respiratory distress on exertion, chest pain, palpitations, or syncope. Consider notifying anesthesia upon patient's presentation to L&D for delivery. delivery reserved for obstetric indications. If symptomatic episodes increase, consider starting beta blockter therapy. Metoprolol is preferred to sotalol. Serial [facility] growth scans if an agent is used. Exposure to beta-blockers during may increase the risk for adverse events in the . If maternal use of a beta-juanpablo is needed, growth should be monitored during and the should be monitored for 48 hours after delivery for bradycardia, hypoglycemia, and respiratory depression. Intracranial hypotension 02/13/2023 Overview: Per [facility] pre-conception consult 2022: -Pt had uncomplicated epidural placement in last -Routine obstetric management; valsalva permitted during second stage (Eur J Obstet Gynecol Reprod Biol. 2015 Jalil;189:113-4). Estimated Date of Delivery Comme nts Yes 09/25/2023 Based on last me nstrual period of 12/19/2022 (Exact Date) documented as of this encounter (statuses as of 08/26/2023) Resolved Problems Problem Noted Date Diagnosed Date [...] patient that although choroid plexus cysts (HAND COREMAKER) can be associated with an increased risk for aneuploidy (particularly Trisomy 18), when choroid plexus cysts (HAND COREMAKER) are noted in isolation of any other abnormalities for a woman who is at low risk (age less than 35, normal genetic screening) choroid plexus cysts (HAND COREMAKER) are considered a normal variant of and [...] as of this encounter (statuses as of 08/26/2023) Immunizations Name Administration Dates Next Due COVID-19 [...] money to get more. Never true 04/23/2023 [place] Depression Scale Answer Date Recorded [place] Depression Scale Total 2 07/31/2023 The thought [...] Sign Reading Time Taken Comments Blood Pressure 116/80 08/26/2023 9:00 AM EDT Pulse - - Temperature - - Respiratory Rate - - Oxygen Saturation - - Inhaled Oxygen Concentration - - Weight 74.3 kg (163 lb 12.8 oz) 08/26/2023 9:00 AM EDT Height 157.5 cm (5' 2") 08/26/2023 9:00 AM EDT Body Mass Index 29.96 08/26/2023 9:00 AM EDT documented in this encounter Progress Notes * Syl Hamlin PA-C - 08/26/2023 9:29 AM EDT 35w5d Called into triage for vaginal spotting last Saturday, 1 week ago. Noticed spotting into underwear and with wiping. None since. Denies LOF, contractions, pelvic pain. Pos fm. No recent intercourse, discussed pelvic rest x 2 weeks. Reviewed GBS with next visit. Call if questions or concerns. RTC in 1 week Syl Hamlin PA-C documented in this encounter Nursing Notes * Deanna Galan LPN - 08/26/2023 9:01 AM EDT 35w5d 1 epsiode bleeding last week. Wondering if Abigail scott is okay after delivery- was recommended by collections specialist. documented in this encounter Plan of Treatment Upcoming Encounters Date Type Department Care Team (Late st Contact Info) Description 09/03/2023 8:30 AM EDT Office Visit Gynecology/Obstetrics [facility] [address] [place] [address] BackerHannah CRNP [address] [place] [address] Health Maintenance Due Date Last Done Comments [...] brain documented in this encounter Care Teams Chief Scientist Relationship Specialty Start Date End Date Itzel Argueta MD PCP - General Family Medicine 09/26/12 documented as of this encounter
--- OUTSIDE RECORDS SUMMARY | 2023-10-02 10:55 | External Medical Summary ---
Author Name Unknown Address Unknown Organization K01:[facility] - [address] [place] [address] Laboratory Report Ordering Provider Test Date Status PHIL MENESES 09/03/2023 09:07:54 Final Observation Date Value Abnormality Reference (Units ) Status Streptococcus agalactiae DNA [Presence] in Specimen by FERMIN with probe detection 09/03/2023 09:07:54 Positive Abnormal Negative Final Group B Streptococcus detect ed by culture-enhanced PCR (amplified probe). GBS GBSCT - [facility] 09/03/2023 09:07:54 15.5 Final GBS SPCCT - [facility] 09/03/2023 09:07:54 0.0 Final Performing Location [facility] - [address] [place] [address]
--- OUTSIDE RECORDS SUMMARY | 2023-10-02 10:55 | External Medical Summary | Summary of Care ---
Author Name Unknown Organization [facility] Address [address] [place] [facility] [place] [place] [address] Phone [phone] Care Team Providers Care Lead Pressman [employer] Name Role Phone Itzel Argueta MD Primary Care Provide r Reason for Visit * Reason Onset Date Comments Forms Request 07/03/2023 Fax 07/03/2023 work fax to ; attention to Jeannette Joy Encounter Details Date Type Department Care Team (Late st Contact Info) Description 07/03/2023 Telephone Gynecology/Obstetrics [facility] [address] [place] [address] Senait Abel CRNP [address] [place] [address] Forms Request; Fax (work fax to [phone]... Allergies No known active allergiesdocumented as of this encounter (statuses as of 07/09/2023) Medications Medication Sig Dispensed Refills Start Date End Date Status 1 30-0.975-200 MG Oral Capsule Take 1 Cap by mouth daily. 0 Active Vitamin B-6 25 MG Oral Tablet Take by mouth. 0 Active Vitamin D (Cholecalciferol) 10 MCG (400 UNIT) Oral Tablet Take by mouth. 0 Active documented as of this encounter (statuses as of 07/09/2023) Active Problems Problem Noted Date Diagnosed Date Normal 02/13/2023 SVT (supraventricular tachycardia) 02/13/2023 Overview: Per [facility] pre-conception consult 2022: Recommendations: Limit caffeine. Hydrate 3 liters daily. Seek immediate medical attention in the event of cardiac symptomatology, such as worsening respiratory distress on exertion, chest pain, palpitations, or syncope. Consider notifying anesthesia upon patient's presentation to L&D for delivery. delivery reserved for obstetric indications. If symptomatic episodes increase, consider starting beta blockter therapy. Metoprolol is preferred to sotalol. Serial [facility] growth scans if an agent is used. Exposure to beta-blockers during may increase the risk for adverse events in the . If maternal use of a beta-juanpablo is needed, growth should be monitored during and the should be monitored for 48 hours after delivery for bradycardia, hypoglycemia, and respiratory depression. Intracranial hypotension 02/13/2023 Overview: Per [facility] pre-conception consult 2022: -Pt had uncomplicated epidural placement in last -Routine obstetric management; valsalva permitted during second stage (Eur J Obstet Gynecol Reprod Biol. 2015 Jalil;189:113-4). Estimated Date of Delivery Comme nts Yes 09/25/2023 Based on last me nstrual period of 12/19/2022 (Exact Date) documented as of this encounter (statuses as of 07/09/2023) Resolved Problems Problem Noted Date Diagnosed Date [...] with patient that although choroid plexus cysts (BOTTOM SAW OPERATOR) can be associated with an increased risk for aneuploidy (particularly Trisomy 18), when choroid plexus cysts (BOTTOM SAW OPERATOR) are noted in isolation of any other abnormalities for a woman who is at low risk (age less than 35, normal genetic screening) choroid plexus cysts (BOTTOM SAW OPERATOR) are considered a normal variant of and [...] as of this encounter (statuses as of 07/09/2023) Immunizations Name Administration Dates Next Due COVID-19 mRNA, LNP-s, No Pre serve, 2-Dose Series (Moderna) 12/23/2020 DTP Vaccine 07/01/1991 DTaP Dipth/Tet/Acell Pertussis (Infanrix), Peds 01/17/1995 HIB PRP-T, 4 dose (ActHib) 04/20/1991,09/24/1990 Hepatitis B, 0-19 yrs 01/01/1992,08/03/1991,06/13 MMR - Measles/Mumps/Rubella Vaccine 06/06/1999,0 04/20/1991 Meningococcal Conjugate Vacc ine (Menactra/Menveo) 09/24/2006 OPV - Polio Virus Vaccine (Oral) 01/17/1995,06/13,09/24/1990 PPD 09/26/2012 Seasonal Influenza, PF, 6 M & above, IM , (FluLaval or Fluzone) 03/03/2020 TB Zainab Test 12/24/1990 TDAP (age 10 and older)(Boostrix) 07/03/2023,03/2021,12/25/2018 TDAP [...] money to get more. Never true 04/23/2023 [place] Depression Scale Answer Date Recorded [place] Depression Scale Total 5 12/05/2020 The thought [...] encounter Miscellaneous Notes * Telephone Encounter - Dayanna Ponce OSA - 07/09/2023 11:01 AM EDT Forms faxed to number listed below. * Telephone Encounter - Heike Mccartney RN - 07/08/2023 12:28 PM EDT Message to Dayanna * Telephone Encounter - Rachell Bangura OSA - 07/08/2023 11:52 AM EDT Patients spouses employer is requesting FMLA forms. Please fax to his work fax at [phone] attention to Jeannette Joy Thank you * Telephone Encounter - Deanna Galan LPN - 07/04/2023 12:21 PM EDT Copies in scan bin. Original in triage for patient pick-up at next visit. * Telephone Encounter - Deanna Galan LPN - 07/03/2023 10:47 AM EDT FMLA forms received 07/03/2023 Would pt like forms faxed no, will pickup at next visit Does pt need notified when done? no Patient Phone Numbers documented in this encounter Plan of Treatment Upcoming Encounters Date Type Department Care Team (Late st Contact Info) Description 07/16/2023 8:30 AM EDT Office Visit Gynecology/Obstetrics [facility] [address] [place] [address] Ammy Renteria MD [address] [place] [address] Health Maintenance Due Date Last Done Comments Depression Screening 12/26/2019 12/25/2018 COVID-19 Vaccine ( season) 2022 12/23/2020 Influenza Vaccine (FLU shot) (#1) 2022 03/03/2020 Pap Smear 11/07/2025 11/07/2022, 12/14, 01/01/2020 [...] filedocumented as of this encounter Care Teams Lead Pressman [employer] Relationship Specialty Start Date End Date Itzel Argueta MD PCP - General Family Medicine 09/26/12 documented as of this encounter
--- OUTSIDE RECORDS SUMMARY | 2023-10-02 10:55 | External Medical Summary | Summary of Care ---
Author Name Unknown Organization [facility] Address [address] [facility] [place] [address] Phone [phone] Care Team Providers Care Fiscal Agent Name Role Phone Itzel Argueta MD Primary Care Provide r Reason for Visit * Reason Onset Date Comments Forms Request 07/03/2023 Fax 07/03/2023 work fax to ; attention to Jeannette Joy Encounter Details Date Type Department Care Team (Late st Contact Info) Description 07/03/2023 Telephone Gynecology/Obstetrics [facility] [address] [place] [address] Senait Abel CRNP [address] [place] [address] Forms Request; Fax (work fax to [phone]... Allergies No known active allergiesdocumented as of this encounter (statuses as of 07/08/2023) Medications Medication Sig Dispensed Refills Start Date End Date Status 1 30-0.975-200 MG Oral Capsule Take 1 Cap by mouth daily. 0 Active Vitamin B-6 25 MG Oral Tablet Take by mouth. 0 Active Vitamin D (Cholecalciferol) 10 MCG (400 UNIT) Oral Tablet Take by mouth. 0 Active documented as of this encounter (statuses as of 07/08/2023) Active Problems Problem Noted Date Diagnosed Date Normal 02/13/2023 SVT (supraventricular tachycardia) 02/13/2023 Overview: Per [facility] pre-conception consult 2022: Recommendations: Limit caffeine. Hydrate 3 liters daily. Seek immediate medical attention in the event of cardiac symptomatology, such as worsening respiratory distress on exertion, chest pain, palpitations, or syncope. Consider notifying anesthesia upon patient's presentation to L&D for delivery. delivery reserved for obstetric indications. If symptomatic episodes increase, consider starting beta blockter therapy. Metoprolol is preferred to sotalol. Serial [facility] growth scans if an agent is used. Exposure to beta-blockers during may increase the risk for adverse events in the . If maternal use of a beta-juanpablo is needed, growth should be monitored during and the should be monitored for 48 hours after delivery for bradycardia, hypoglycemia, and respiratory depression. Intracranial hypotension 02/13/2023 Overview: Per [facility] pre-conception consult 2022: -Pt had uncomplicated epidural placement in last -Routine obstetric management; valsalva permitted during second stage (Eur J Obstet Gynecol Reprod Biol. 2015 Jalil;189:113-4). Estimated Date of Delivery Comme nts Yes 09/25/2023 Based on last me nstrual period of 12/19/2022 (Exact Date) documented as of this encounter (statuses as of 07/08/2023) Resolved Problems Problem Noted Date Diagnosed Date [...] with patient that although choroid plexus cysts (SUPERVISOR HARDBOARD) can be associated with an increased risk for aneuploidy (particularly Trisomy 18), when choroid plexus cysts (SUPERVISOR HARDBOARD) are noted in isolation of any other abnormalities for a woman who is at low risk (age less than 35, normal genetic screening) choroid plexus cysts (SUPERVISOR HARDBOARD) are considered a normal variant of and [...] as of this encounter (statuses as of 07/08/2023) Immunizations Name Administration Dates Next Due COVID-19 [...] money to get more. Never true 04/23/2023 [place] Depression Scale Answer Date Recorded [place] Depression Scale Total 5 12/05/2020 The thought [...] encounter Miscellaneous Notes * Telephone Encounter - Heike Mccartney RN - 07/08/2023 12:28 PM EDT Message to Dayanna * Telephone Encounter - Rachell Bangura OSA - 07/08/2023 11:52 AM EDT Patients spouses employer is requesting FMLA forms. Please fax to his work fax at [phone] attention to Jeannette Joy Thank you * [...] 07/16/2023 8:30 AM EDT Office Visit Gynecology/Obstetrics [address] [place] [address] Ammy Renteria MD [address] [place] [address] [place] [address] Health Maintenance Due Date Last Done Comments Depression Screening 12/26/2019 12/25/2018 COVID-19 Vaccine (2 - 2022-24 season) 2022 12/23/2020 Influenza Vaccine (FLU shot) [...] filedocumented as of this encounter Care Teams Fiscal Agent Relationship Specialty Start Date End Date Itzel Argueta MD PCP - General Family Medicine 09/26/12 documented as of this encounter
--- OUTSIDE RECORDS SUMMARY | 2023-10-02 10:55 | External Medical Summary | Summary of Care ---
Author Name Unknown Organization [facility] Address [address] [place] [address] Phone [phone] Care Team Providers Care Shelter Case Manager Name Role Phone Itzel Argueta MD Primary Care Provide r Reason for Visit * Reason Comments Return Visit Encounter Details Date Type Department Care Team (Late st Contact Info) Description 07/31/2023 9:00 AM EDT Office Visit Gynecology/Obstetric [facility] [address] [facility] [place] [address] Rhina Liao, [facility] [address] [facility] [place] [phone] Normal in third trimester*; SVT (supraventricular tachycardia) ([facility]); Intracranial hypotension Allergies No known active allergiesdocumented as of this encounter (statuses as of 07/31/2023) Medications Medication Sig Dispensed Refills Start Date End Date Status 1 30-0.975-200 MG Oral Capsule Take 1 Cap by mouth daily. 0 Active Vitamin D (Cholecalciferol) 10 MCG (400 UNIT) Oral Tablet Take by mouth. 0 Active Vitamin B-6 25 MG Oral Tablet Take by mouth. 0 07/31/2023 Discontinued(P atient preference/dis continuation) documented as of this encounter (statuses as of 07/31/2023) Active Problems Problem Noted Date Diagnosed Date Normal 02/13/2023 SVT (supraventricular tachycardia) 02/13/2023 Overview: Per [facility] pre-conception consult 2022: Recommendations: Limit [...] therapy. Metoprolol is preferred to sotalol. Serial [facility] growth scans if an agent is used. Exposure to beta-blockers during may increase the risk for adverse events in the . If maternal use of a beta-juanpablo is needed, growth should be monitored during and the should be monitored for 48 hours after delivery for bradycardia, hypoglycemia, and respiratory depression. Intracranial hypotension 02/13/2023 Overview: Per [facility] pre-conception consult 2022: -Pt had uncomplicated epidural placement in last -Routine obstetric management; valsalva permitted during second stage (Eur J Obstet Gynecol Reprod Biol. 2015 Jalil;189:113-4). Estimated Date of Delivery Comme nts Yes 09/25/2023 Based on last me nstrual period of 12/19/2022 (Exact Date) documented as of this encounter (statuses as of 07/31/2023) Resolved Problems Problem Noted Date Diagnosed Date [...] with patient that although choroid plexus cysts (PARTS PULLER) can be associated with an increased risk for aneuploidy (particularly Trisomy 18), when choroid plexus cysts (PARTS PULLER) are noted in isolation of any other abnormalities for a woman who is at low risk (age less than 35, normal genetic screening) choroid plexus cysts (PARTS PULLER) are considered a normal variant of and [...] as of this encounter (statuses as of 07/31/2023) Immunizations Name Administration Dates Next Due COVID-19 [...] money to get more. Never true 04/23/2023 [place] Depression Scale Answer Date Recorded [place] Depression Scale Total 2 07/31/2023 The thought [...] Sign Reading Time Taken Comments Blood Pressure 116/62 07/31/2023 8:54 AM EDT Pulse - - Temperature - - Respiratory Rate - - Oxygen Saturation - - Inhaled Oxygen Concentration - - Weight 72.6 kg (160 lb) 07/31/2023 8:54 AM EDT Height 157.5 cm (5' 2") 07/31/2023 8:54 AM EDT Body Mass Index 29.26 07/31/2023 8:54 AM EDT documented in this encounter Progress Notes * Rhina Liao CNM - 07/31/2023 8:59 AM EDT Aimee Lopez is a 32 year old female here for her routine OB appointment at 32w0d Her Estimated Date of Delivery: 09/25/23 REVIEW OF SYSTEMS: She affirms movement. Denies vaginal bleeding, LOF, contractions, N/V, headaches, vision changes, and RUQ pain. Was concerned that baby was transverse previously but believes baby is now head down. She has been doing yogaand exercises at home to help with baby's position. Plans delivery at [facility]. Lives [place] [address]. PHYSICAL EXAM: Filed Vitals: 07/31/23 0854 BP: 116/62 Weight: 72.6 kg (160 lb) Height: 1.575 m (5' 2") +FHT 140-150bpm Fundal height: 33cm ASSESSMENT/PLAN: (I47.10) SVT (supraventricular tachycardia) (HCC) Plan: -Denies chest pain or palpitations (G96.810) Intracranial hypotension Plan: -Symptoms were like a horrible migraine, has not had symptoms in a couple years (Z34.90) Normal (primary encounter diagnosis) Plan: -baby feels cephalic by Duran's today; will consider US in 2 weeks if uncertain - labor precautions and kick counts reviewed - RTO in 2 weeks Rhina Liao CNM documented in this encounter Nursing Notes * Deanna Galan LPN - 07/31/2023 8:56 AM EDT 32w0d Denies concerns. documented in this encounter Plan of Treatment Upcoming Encounters Date Type Department Care Team (Late st Contact Info) Description 08/14/2023 11:45 AM EDT Office Visit Gynecology/Obstetrics [facility] [address] [place] [address] [place], ABDI Bee [address] [place] [address] Health Maintenance Due Date Last Done Comments [...] brain documented in this encounter Care Teams Shelter Case Manager Relationship Specialty Start Date End Date Itzel Argueta MD PCP - General Family Medicine 09/26/12 documented as of this encounter
--- OUTSIDE RECORDS SUMMARY | 2023-10-02 10:56 | External Medical Summary | Summary of Care ---
Author Name Unknown Organization [facility] Address [address] [facility] [place] [address] Phone [phone] Care Team Providers Care Pediatrician/Medical Doctor Name Role Phone Itzel Argueta MD Primary Care Provide r Reason for Visit * Reason Comments Return Visit Encounter Details Date Type Department Care Team ([facility] Contact Info) Description 06/04/2023 10:15 AM EST Office Visit Gynecology/Obstetric s [facility] [address] [place] [address] Senait Abel CRNP [address] [place] [address] Normal in second trimester*; SVT (supraventricular tachycardia); Intracranial hypotension; Low-lying placenta Allergies No known active allergiesdocumented as of this encounter (statuses as of 06/04/2023) Medications Medication Sig Dispensed Refills Start Date End Date Status 1 30-0.975-200 MG Oral Capsule Take 1 Cap by mouth daily. 0 Active Vitamin B-6 25 MG Oral Tablet Take by mouth. 0 Active Vitamin D (Cholecalciferol) 10 MCG (400 UNIT) Oral Tablet Take by mouth. 0 Active documented as of this encounter (statuses as of 06/04/2023) Active Problems Problem Noted Date Diagnosed Date Normal 02/13/2023 SVT (supraventricular tachycardia) 02/13/2023 Overview: Per [facility] pre-conception consult 2022: Recommendations: Limit caffeine. Hydrate 3 liters daily. Seek immediate medical attention in the event of cardiac symptomatology, such as worsening respiratory distress on exertion, chest pain, palpitations, or syncope. Consider notifying anesthesia upon patient's presentation to L&D for delivery. delivery reserved for obstetric indications. If symptomatic episodes increase, consider starting beta blockter therapy. Metoprolol is preferred to sotalol. Serial [facility] growth scans if an agent is used. Exposure to beta-blockers during may increase the risk for adverse events in the . If maternal use of a beta-juanpablo is needed, growth should be monitored during and the should be monitored for 48 hours after delivery for bradycardia, hypoglycemia, and respiratory depression. Intracranial hypotension 02/13/2023 Overview: Per [facility] pre-conception consult 2022: -Pt had uncomplicated epidural placement in last -Routine obstetric management; valsalva permitted during second stage (Eur J Obstet Gynecol Reprod Biol. 2015 Jalil;189:113-4). Estimated Date of Delivery Comme nts Yes 09/25/2023 Based on last me nstrual period of 12/19/2022 (Exact Date) documented as of this encounter (statuses as of 06/04/2023) Resolved Problems Problem Noted Date Diagnosed Date [...] with patient that although choroid plexus cysts (HEDGE FUND PRINCIPAL) can be associated with an increased risk for aneuploidy (particularly Trisomy 18), when choroid plexus cysts (HEDGE FUND PRINCIPAL) are noted in isolation of any other abnormalities for a woman who is at low risk (age less than 35, normal genetic screening) choroid plexus cysts (HEDGE FUND PRINCIPAL) are considered a normal variant of and [...] as of this encounter (statuses as of 06/04/2023) Immunizations Name Administration Dates Next Due COVID-19 mRNA, LNP-s, No Pre serve, 2-Dose Series (Moderna) 12/23/2020 Meningococcal Conjugate Vaccine (Menactra/Menveo ) 09/24/2006 PPD 09/26/2012 Seasonal Influenza, PF, 6 M & above, IM , (FluLaval or Fluzone) 03/03/2020 TDAP (age 10 and older)(Boostrix) 08/24/2020,03/2019 TDAP (age 11 and older)(Adacel) 09/24/2006 documented [...] money to get more. Never true 04/23/2023 [place] Depression Scale Answer Date Recorded [place] Depression Scale Total 5 12/05/2020 The thought [...] Sign Reading Time Taken Comments Blood Pressure 98/68 06/04/2023 10:09 AM EST Pulse - - Temperature - - Respiratory Rate - - Oxygen Saturation - - Inhaled Oxygen Concentration - - Weight 70.3 kg (155 lb) 06/04/2023 10:09 AM EST Height 157.5 cm (5' 2") 06/04/2023 10:09 AM EST Body Mass Index 28.35 06/04/2023 10:09 AM EST documented in this encounter Progress Notes * Senait Abel CRNP - 06/04/2023 10:39 AM EST 23w6d No concerns. Has low lying placenta, will recheck at next visit. Baby is active. No contractions, bleeding or LOF. Glucola with next visit. ABDI Matute documented in this encounter Nursing Notes * Deanna Galan LPN - 06/04/2023 10:15 AM EST 23w6d Given 2nd tri packet and Birthly information. Will look into getting a belly band for ligament and upper stomach area discomforts. documented in this encounter Plan of Treatment Upcoming Encounters Date Type Department Care Team (Late st Contact Info) Description 07/03/2023 9:30 AM EDT Laboratory Laboratory, [facility] [address] [place] [id number] [address] [place] [address] 07/03/2023 10:00 AM EDT Imaging Radiology [facility] 2nd [address] [place] [address] 07/03/2023 10:45 AM EDT Office Visit Gynecology/Obstetrics [facility] [address] [place] [place] [address] Senait Abel CRNP [address] [facility] [place] [address] Scheduled Orders Name Type Priority Associated Diagnoses Orde r Schedule CBC WITH WBC DIFFERENTIAL AND ANEMIA REFLEX WORKUP Lab Routine Normal in second trimester Expected: 07/03/2023 (Approximate), Expires: 06/04/2024 SYPHILIS ANTIBODY SCREEN WITH REFLEX TO RPR Lab Routine Normal in second trimester Expected: 07/03/2023 (Approximate), Expires: 06/04/2024 50-G GESTATIONAL GLUCOSE, 1 HOUR Lab Routine Normal in second trimester Expected: 07/03/2023 (Approximate), Expires: 06/04/2024 US PELVIS TRANS-VAGINAL OB Medical Imaging Routine Normal in second trimester Low-lying placenta Expected: 07/03/2023 (Approximate), Expires: 07/02/2024 Health Maintenance Due Date Last Done Comments Depression Screening 12/26/2019 12/25/2018 COVID-19 Vaccine (2 - season) 2022 12/23/2020 Influenza Vaccine (FLU shot) (#1) 2022 03/03/2020 Pap Smear 11/07/2025 11/07/2022, 12/14, 01/01/2020 Cervical Cancer Screening 11/08/2027 HPV/Co-Test 11/08/2027 11/07/2022 DTaP,Tdap,and Td Vaccines (6 - Td or Tdap) 08/24/2030 08/24/2020, 12/25/2018, 09/24/2006, Additional history exists Hepatitis B Completed 01/01/1992, [...] this encounter Visit Diagnoses Diagnosis Normal in second trimester- Primary SVT (supraventricular tachycardia) Other specified cardiac dysrhythmias Intracranial hypotension Other conditions of brain Low-lying placenta Hemorrhage from placenta previa, unspecified as to episode of care documented in this encounter Care Teams Pediatrician/Medical Doctor Relationship Specialty Start Date End Date Itzel Argueta MD PCP - General Family Medicine 09/26/12 documented as of this encounter
--- OUTSIDE RECORDS SUMMARY | 2023-10-02 10:56 | External Medical Summary | Summary of Care ---
Author Name Unknown Organization [facility] Address [address] [place] [address] Phone [phone] Care Team Providers Care Associate Professor Of Media Arts Name Role Phone Itzel Argueta MD Primary Care Provide r Reason for Visit * Reason Comments Return Visit Encounter Details Date Type Department Care Team ([facility] Contact Info) Description 07/03/2023 10:45 AM EDT Office Visit Gynecology/Obstetric s [facility] [address] [place] [address] Senait Abel CRNP [address] [place] [address] Normal in third trimester*; SVT (supraventricular tachycardia); Intracranial hypotension Allergies No known active allergiesdocumented as of this encounter (statuses as of 07/03/2023) Medications Medication Sig Dispensed Refills Start Date End Date Status 1 30-0.975-200 MG Oral Capsule Take 1 Cap by mouth daily. 0 Active Vitamin B-6 25 MG Oral Tablet Take by mouth. 0 Active Vitamin D (Cholecalciferol) 10 MCG (400 UNIT) Oral Tablet Take by mouth. 0 Active documented as of this encounter (statuses as of 07/03/2023) Active Problems Problem Noted Date Diagnosed Date Normal 02/13/2023 SVT (supraventricular tachycardia) 02/13/2023 Overview: Per [facility] pre-conception consult 2022: Recommendations: Limit caffeine. Hydrate 3 liters daily. Seek immediate medical attention in the event of cardiac symptomatology, such as worsening respiratory distress on exertion, chest pain, palpitations, or syncope. Consider notifying anesthesia upon patient's presentation to L&D for delivery. delivery reserved for obstetric indications. If symptomatic episodes increase, consider starting beta blockter therapy. Metoprolol is preferred to sotalol. Serial [facility] growth scans if an agent is used. Exposure to beta-blockers during may increase the risk for adverse events in the . If maternal use of a beta-juanpablo is needed, growth should be monitored during and the should be monitored for 48 hours after delivery for bradycardia, hypoglycemia, and respiratory depression. Intracranial hypotension 02/13/2023 Overview: Per [facility] pre-conception consult 2022: -Pt had uncomplicated epidural placement in last -Routine obstetric management; valsalva permitted during second stage (Eur J Obstet Gynecol Reprod Biol. 2015 [place]al[place];189:113-4). Estimated Date of Delivery Comme nts Yes 09/25/2023 Based on last me nstrual period of 12/19/2022 (Exact Date) documented as of this encounter (statuses as of 07/03/2023) Resolved Problems Problem Noted Date Diagnosed Date [...] with patient that although choroid plexus cysts (FIRE ASSISTANT) can be associated with an increased risk for aneuploidy (particularly Trisomy 18), when choroid plexus cysts (FIRE ASSISTANT) are noted in isolation of any other abnormalities for a woman who is at low risk (age less than 35, normal genetic screening) choroid plexus cysts (FIRE ASSISTANT) are considered a normal variant of and [...] as of this encounter (statuses as of 07/03/2023) Immunizations Name Administration Dates Next Due COVID-19 [...] money to get more. Never true 04/23/2023 [place] Depression Scale Answer Date Recorded [place] Depression Scale Total 5 12/05/2020 The thought [...] Sign Reading Time Taken Comments Blood Pressure 108/64 07/03/2023 10:27 AM EDT Pulse - - Temperature - - Respiratory Rate - - Oxygen Saturation - - Inhaled Oxygen Concentration - - Weight 71.5 kg (157 lb 9.6 oz) 07/03/2023 10:27 AM EDT Height 157.5 cm (5' 2") 07/03/2023 10:27 AM EDT Body Mass Index 28.83 07/03/2023 10:27 AM EDT documented in this encounter Progress Notes * Senait Abel CRNP - 07/03/2023 10:47 AM EDT 28w U/s showing placenta no longer low lying, restrictions lifted. Having pelvic heaviness, suggested belly band. Glucola, TDAP today. ABDI Matute documented in this encounter Nursing Notes * Deanna Galan LPN - 07/03/2023 10:47 AM EDT Patient here for tdap injection. Patient doing well no complaints. Injection given IM as ordered. Patient tolerated well. Patient to follow up as directed. Patient instructed to call if any complications. Patient verbalized understanding of instructions given and her follow up appt for ISAURA Injection site: Left Deltoid Medication Source: Dispensed stock medication * Deanna Galan LPN - 07/03/2023 10:27 AM EDT 28w2d Increased pelvic discomfort. US today- placenta no longer low lying. documented in this encounter Plan of Treatment Upcoming Encounters Date Type Department Care Team (Late st Contact Info) Description 07/16/2023 8:30 AM EDT Office Visit Gynecology/Obstetrics [facility] [address] [facility] [place] [address] Ammy Renteria MD [address] [place] [address] [place] [address] Health Maintenance Due Date Last Done Comments Depression Screening 12/26/2019 12/25/2018 COVID-19 Vaccine (2022-24 season) 2022 12/23/2020 Influenza Vaccine (FLU shot) [...] in third trimester- Primary SVT (supraventricular tachycardia) Other specified cardiac dysrhythmias Intracranial hypotension Other conditions of brain documented in this encounter Care Teams Associate Professor Of Media Arts Relationship Specialty Start Date End Date Itzel Argueta MD PCP - General Family Medicine 09/26/12 documented as of this encounter
--- OUTSIDE RECORDS SUMMARY | 2023-10-02 10:56 | External Medical Summary ---
Author Name Unknown Address Unknown Organization K01:[facility] - [address] [facility] [address] Laboratory Report Ordering Provider Test Date Status ROLAND MICHEL 07/03/2023 10:52:58 Final Observation Date Value Abnormality Reference (Units ) Status Treponema pallidum Ab [Presence] in Serum by Immunoassay 07/03/2023 10:52:58 Nonreactive Nonreactive Final No serologic evidence of syp hilis. No additional testing clinicially indicated at this time. Consider repeat testing in 2-4 weeks if acute or primary syphilis is suspected. Performing Location [facility] - [address] [place] [address]
--- OUTSIDE RECORDS SUMMARY | 2023-10-02 10:56 | External Medical Summary | Summary of Care ---
Author Name Unknown Organization [facility] Address [address] [facility] [address] Phone [phone] Care Team Providers Care Grain Drier Name Role Phone Itzel Argueta MD Primary Care Provide r Reason for Visit * Reason Onset Date Comments Forms Request 05/07/2023 Encounter Details Date Type Department Care Team (Late st Contact Info) Description 05/07/2023 Telephone Gynecology/Obstetrics [facility] [address] [place] [address] Senait Abel CRNP [address] [place] [address] Forms Request Allergies No known active allergiesdocumented as of [...] the . If maternal use of a beta-jaunpablo is needed, growth should be monitored during and the should be monitored for 48 hours after delivery for bradycardia, hypoglycemia, and respiratory depression. Intracranial hypotension 02/13/2023 Overview: Per [facility] pre-conception consult 2022: -Pt had uncomplicated [...] with patient that although choroid plexus cysts (FOOD PRODUCTS SALES REPRESENTATIVE) can be associated with an increased risk for aneuploidy (particularly Trisomy 18), when choroid plexus cysts (FOOD PRODUCTS SALES REPRESENTATIVE) are noted in isolation of any other abnormalities for a woman who is at low risk (age less than 35, normal genetic screening) choroid plexus cysts (FOOD PRODUCTS SALES REPRESENTATIVE) are considered a normal variant of and [...] Test 12/24/1990 TDAP (age 10 and older)(Boostrix) 08/24/2020,03/2019 TDAP [...] money to get more. Never true 04/23/2023 Range Depression Scale Answer Date Recorded Range Depression Scale Total 5 12/05/2020 The thought [...] encounter Miscellaneous Notes * Telephone Encounter - McHail, Senait L, CLARIFIER OPERATOR HELPER - 06/04/2023 2:14 PM EST Fine to change the dates. * Telephone Encounter - Gayla Richards LPN - 06/04/2023 1:56 PM EST Patient's spouse called asking if dates could be changed. Current date is her due date September 24 and it is giving him off the few weeks after delivery. He is requesting to be off starting August 25 until the September 11. So he can be home with her prior to delivery in prep for baby. [phone], spouse Jeannette. * Telephone Encounter - Deanna Galan LPN - 05/07/2023 3:23 PM EST Forms completed and on Senait's desk for signature. * Telephone Encounter - Deanna Galan LPN - 05/07/2023 2:45 PM EST FMLA forms received 05/07/2023 Would pt like forms faxed no, will greens picker at next visit Does pt need notified when done? no Patient Phone Numbers documented in this encounter Plan of Treatment Upcoming Encounters Date Type Department Care Team (Late st Contact Info) Description 07/03/2023 9:30 AM EDT Laboratory Laboratory, [facility] [address] [place] [phone] [facility] [address] [facility] [place] [address] 07/03/2023 10:00 AM EDT Imaging Radiology [facility] [address] [facility] [place] [address] [place] [address] 07/03/2023 10:45 AM EDT Office Visit Gynecology/Obstetrics [facility] [address] [place] [address] Senait Abel CRNP [address] [place] [address] Health Maintenance Due Date Last Done Comments Depression Screening 12/26/2019 12/25/2018 COVID-19 Vaccine (2022- season) 2022 12/23/2020 Influenza Vaccine (FLU shot) [...] filedocumented as of this encounter Care Teams Grain Drier Relationship Specialty Start Date End Date Itzel Argueta MD PCP - General Family Medicine 09/26/12 documented as of this encounter
--- OUTSIDE RECORDS SUMMARY | 2023-10-02 10:56 | External Medical Summary | Summary of Care ---
Author Name Unknown Organization [facility] Address [address] [facility] [place] [address] Phone [phone] Care Team Providers Care Test Preparer Name Role Phone Itzel Argueta MD Primary Care Provide r Encounter Details Date Type Department Care Team (Late st Contact Info) Description 05/08/2023 Telephone [facility] [address] [place] [address] Syl Halmin PA-C [address] [employer] [place] [address] Allergies No known active allergiesdocumented as of this encounter (statuses as of 05/08/2023) Medications Medication Sig Dispensed Refills Start Date End Date Status 1 30-0.975-200 MG Oral Capsule Take 1 Cap by mouth daily. 0 Active Vitamin B-6 25 MG Oral Tablet Take by mouth. 0 Active Vitamin D (Cholecalciferol) 10 MCG (400 UNIT) Oral Tablet Take by mouth. 0 Active documented as of this encounter (statuses as of 05/08/2023) Active Problems Problem Noted Date Diagnosed Date Normal 02/13/2023 SVT (supraventricular tachycardia) 02/13/2023 Overview: Per [facility] pre-conception consult 2022: Recommendations: Limit caffeine. [...] as of this encounter (statuses as of 05/08/2023) Resolved Problems Problem Noted Date Diagnosed Date [...] with patient that although choroid plexus cysts (PAPER ROLL MACHINE OPERATOR) can be associated with an increased risk for aneuploidy (particularly Trisomy 18), when choroid plexus cysts (PAPER ROLL MACHINE OPERATOR) are noted in isolation of any other abnormalities for a woman who is at low risk (age less than 35, normal genetic screening) choroid plexus cysts (PAPER ROLL MACHINE OPERATOR) are considered a normal variant of [...] (Eur J Obstet Gynecol Reprod Biol. 2015 Sep;189:113-4). Benign skin cyst 06/11/2013 03/11/2015 Encounter for [...] as of this encounter (statuses as of 05/08/2023) Immunizations Name Administration Dates Next Due COVID-19 [...] money to get more. Never true 04/23/2023 [place] Depression Scale Answer Date Recorded [place] Depression Scale Total 5 12/05/2020 The thought [...] Telephone Encounter - Heike Mccartney RN - 05/08/2023 4:43 PM EST Pt is aware. She will call with any bleeding. * Telephone Encounter - Syl Hamlin PA-C - 05/08/2023 4:37 PM EST Please call patient and let her know anatomy well demonstrated and growth normal. Her placenta was low lying. Meaning close to cervix. Recommend pelvic rest, no intercourse and planfor repeat ultrasound near start of third trimester to ensure resolving as these typically resolve with time. If any vaginal bleeding she should let us know. documented in this encounter Plan of Treatment Upcoming Encounters Date Type Department Care Team (Late st Contact Info) Description 06/04/2023 10:15 AM EST Office Visit Gynecology/Obstetrics [facility] [address] [place] [address] Senait Abel CRNP [address] [place] [address] Health Maintenance Due Date Last Done Comments [...] filedocumented as of this encounter Care Teams Test Preparer Relationship Specialty Start Date End Date Itzel Argueta MD PCP - General Family Medicine 09/26/12 documented as of this encounter
--- OUTSIDE RECORDS SUMMARY | 2023-10-02 10:56 | External Medical Summary | Summary of Care ---
Author Name Unknown Organization [facility] Address [address] [place] [address] Phone [phone] Care Team Providers Care Foreign Food Cook Specialty Name Role Phone Itzel Argueta MD Primary Care Provide r Reason for Visit * Reason Comments Return Visit Encounter Details Date Type Department Care Team ([facility] Contact Info) Description 07/03/2023 10:45 AM EDT Office Visit Gynecology/Obstetric s [facility] [address] [place] [address] Senait Abel CRNP [address] [place] [address] Normal in third trimester*; SVT (supraventricular tachycardia); Intracranial hypotension Allergies No known active allergiesdocumented as of this encounter (statuses as of 07/04/2023) Medications Medication Sig Dispensed Refills Start Date End Date Status 1 30-0.975-200 MG Oral Capsule Take 1 Cap by mouth daily. 0 Active Vitamin B-6 25 MG Oral Tablet Take by mouth. 0 Active Vitamin D (Cholecalciferol) 10 MCG (400 UNIT) Oral Tablet Take by mouth. 0 Active documented as of this encounter (statuses as of 07/04/2023) Active Problems Problem Noted Date Diagnosed Date Normal 02/13/2023 SVT (supraventricular tachycardia) 02/13/2023 Overview: Per [facility] pre-conception consult 2022: Recommendations: Limit caffeine. Hydrate 3 liters daily. Seek immediate medical attention in the event of cardiac symptomatology, such as worsening respiratory distress on exertion, chest pain, palpitations, or syncope. Consider notifying anesthesia upon patient's presentation to L&D for delivery. delivery reserved for obstetric indications. If symptomatic episodes increase, consider starting beta blockter therapy. Metoprolol is preferred to sotalol. Serial [facility] growth scans if an agent is used. Exposure to beta-blockers during may increase the risk for adverse events in the . If maternal use of a beta-juanpablo is needed, growth should be monitored during and the should be monitored for 48 hours after delivery for bradycardia, hypoglycemia, and respiratory depression. Intracranial hypotension 02/13/2023 Overview: Per [facility] pre-conception consult 2022: -Pt had uncomplicated epidural placement in last -Routine obstetric management; valsalva permitted during second stage (Eur J Obstet Gynecol Reprod Biol. 2015 Jalil;189:113-4). Estimated Date of Delivery Comme nts Yes 09/25/2023 Based on last me nstrual period of 12/19/2022 (Exact Date) documented as of this encounter (statuses as of 07/04/2023) Resolved Problems Problem Noted Date Diagnosed Date [...] patient that although choroid plexus cysts (FIRE PROTECTION SPECIALIST) can be associated with an increased risk for aneuploidy (particularly Trisomy 18), when choroid plexus cysts (FIRE PROTECTION SPECIALIST) are noted in isolation of any other abnormalities for a woman who is at low risk (age less than 35, normal genetic screening) choroid plexus cysts (FIRE PROTECTION SPECIALIST) are considered a normal variant of and [...] as of this encounter (statuses as of 07/04/2023) Immunizations Name Administration Dates Next Due COVID-19 [...] money to get more. Never true 04/23/2023 [place] Depression Scale Answer Date Recorded [place] Depression Scale Total 5 12/05/2020 The thought [...] 07/16/2023 8:30 AM EDT Office Visit Gynecology/Obstetrics [facility] [address] [facility] [place] [address] Ammy Renteria MD [address] [place] [address] [place] [address] Health Maintenance Due Date [...] brain documented in this encounter Care Teams Foreign Food Cook Specialty Relationship Specialty Start Date End Date Itzel Argueta MD PCP - General Family Medicine 09/26/12 documented as of this encounter
--- OUTSIDE RECORDS SUMMARY | 2023-10-02 10:56 | External Medical Summary | Summary of Care ---
Author Name Unknown Organization [facility] Address [address] [facility] [address] Phone [phone] Care Team Providers Care Locker Room Supervisor Name Role Phone Itzel Argueta MD Primary Care Provide r Reason for Visit * Reason Onset Date Comments Forms Request 07/03/2023 Fax 07/03/2023 work fax to ; attention to Jeannette Joy Encounter Details Date Type Department Care Team (Late st Contact Info) Description 07/03/2023 Telephone Gynecology/Obstetrics [facility] [address] [place] [address] Senait Abel CRNP [address] [place] [address] Forms Request; Fax (work fax to [phone]... Allergies No known active allergiesdocumented as of [...] 02/13/2023 SVT (supraventricular tachycardia) 02/13/2023 Overview: Per [facility] pre-conception consult 2022: Recommendations: Limit caffeine. Hydrate 3 liters daily. Seek immediate medical attention in the event of cardiac symptomatology, such as worsening respiratory distress on exertion, chest pain, palpitations, or syncope. Consider notifying anesthesia upon patient's presentation to L&D for delivery. delivery reserved for obstetric indications. If symptomatic episodes increase, consider starting beta blockter therapy. Metoprolol is preferred to sotalol. Serial [facility] growth scans if an agent is used. Exposure to beta-blockers during may increase the risk for adverse events in the . If maternal use of a beta-juanpablo is needed, growth should be monitored during and the should be monitored for 48 hours after delivery for bradycardia, hypoglycemia, and respiratory depression. Intracranial hypotension 02/13/2023 Overview: Per [facility] pre-conception consult 2022: -Pt had uncomplicated [...] with patient that although choroid plexus cysts (VARNISH MELTER HELPER) can be associated with an increased risk for aneuploidy (particularly Trisomy 18), when choroid plexus cysts (VARNISH MELTER HELPER) are noted in isolation of any other abnormalities for a woman who is at low risk (age less than 35, normal genetic screening) choroid plexus cysts (VARNISH MELTER HELPER) are considered a normal variant of [...] money to get more. Never true 04/23/2023 [place] Depression Scale Answer Date Recorded [place] Depression Scale Total 5 12/05/2020 The thought [...] encounter Miscellaneous Notes * Telephone Encounter - Rachell Bangura OSA - 07/08/2023 11:52 AM EDT Patients spouses employer is requesting FMLA forms. Please fax to his work fax at [phone] attention to Jeannette Joy Thank you * [...] 07/16/2023 8:30 AM EDT Office Visit Gynecology/Obstetrics [facility] [address] [place] [address] Ammy Renteria MD [address] [place] [address] [place] [phone] Health Maintenance Due Date Last Done Comments [...] filedocumented as of this encounter Care Teams Locker Room Supervisor Relationship Specialty Start Date End Date Itzel Argueta MD PCP - General Family Medicine 09/26/12 documented as of this encounter
--- OUTSIDE RECORDS SUMMARY | 2023-10-02 10:56 | External Medical Summary | Summary of Care ---
Author Name Unknown Organization [facility] Address [address] [facility] [place] [address] Phone [phone] Care Team Providers Care Concert Manager Name Role Phone Itzel Argueta MD Primary Care Provide r Reason for Visit * Reason Onset Date Comments Forms Request 07/03/2023 Encounter Details Date Type Department Care Team (Late st Contact Info) Description 07/03/2023 Telephone Gynecology/Obstetrics [facility] [address] [place] [address] Senait Abel CRNP [address] [place] [address] Forms Request Allergies No known active allergiesdocumented [...] respiratory depression. Intracranial hypotension 02/13/2023 Overview: Per [facility] pre-conception consult 2022: -Pt had [...] with patient that although choroid plexus cysts (BARREL FINISHER) can be associated with an increased risk for aneuploidy (particularly Trisomy 18), when choroid plexus cysts (BARREL FINISHER) are noted in isolation of any other abnormalities for a woman who is at low risk (age less than 35, normal genetic screening) choroid plexus cysts (BARREL FINISHER) are considered a normal variant of and [...] money to get more. Never true 04/23/2023 [place] Depression Scale Answer Date Recorded [place] Depression Scale Total 5 12/05/2020 The thought [...] encounter Miscellaneous Notes * Telephone Encounter - Deanna Galan LPN [...] 07/16/2023 8:30 AM EDT Office Visit Gynecology/Obstetrics [facility] [address] [facility] [place] [address] Ammy Renteria MD [address] [place] [address] [place] [address] Health Maintenance Due Date [...] filedocumented as of this encounter Care Teams Concert Manager Relationship Specialty Start Date End Date Itzel Argueta MD PCP - General Family Medicine 09/26/12 documented as of this encounter
--- OUTSIDE RECORDS SUMMARY | 2023-10-02 10:56 | External Medical Summary | Summary of Care ---
Author Name Unknown Organization [facility] Address [address] [place] [address] Phone [phone] Care Team Providers Care Sap Basis Architect Name Role Phone Itzel Argueta MD Primary Care Provide r Reason for Visit * Reason Onset Date Comments Forms Request 05/07/2023 Encounter Details Date Type Department Care Team (Late st Contact Info) Description 05/07/2023 Telephone Gynecology/Obstetrics [facility] [address] [place] [address] Senait Abel CRNP [address] [place] [address] Forms Request Allergies No known active allergiesdocumented [...] respiratory depression. Intracranial hypotension 02/13/2023 Overview: Per [facility] pre-conception consult 2022: -Pt had uncomplicated [...] with patient that although choroid plexus cysts (INVESTMENT MANAGER) can be associated with an increased risk for aneuploidy (particularly Trisomy 18), when choroid plexus cysts (INVESTMENT MANAGER) are noted in isolation of any other abnormalities for a woman who is at low risk (age less than 35, normal genetic screening) choroid plexus cysts (INVESTMENT MANAGER) are considered a normal variant of and [...] money to get more. Never true 04/23/2023 [place] Depression Scale Answer Date Recorded [place] Depression Scale Total 5 12/05/2020 The thought [...] * Telephone Encounter - McHail, Senait L, COMMISSIONER CONSERVATION OF RESOURCES - 06/04/2023 2:14 PM EST Fine to [...] prior to delivery in prep for baby. [phone], spouse Jeannette. * Telephone Encounter - Deanna Galan LPN - 05/07/2023 3:23 PM EST Forms completed and on Senait's desk for signature. * Telephone Encounter - Deanna Galan LPN - 05/07/2023 2:45 PM EST FMLA forms received 05/07/2023 Would pt like forms faxed no, will machine pecan picker at next visit Does pt need notified when done? no Patient Phone Numbers documented in this encounter Plan of Treatment Upcoming Encounters Date Type Department Care Team (Late st Contact Info) Description 07/03/2023 9:30 AM EDT Laboratory Laboratory, [facility] [address] [place] [phone] [facility] [address] [facility] [place] [address] 07/03/2023 10:00 AM EDT Imaging Radiology [facility] 2nd [facility] [place] [address] [place] [address] 07/03/2023 10:45 AM EDT Office Visit Gynecology/Obstetrics [facility] [address] [place] [address] Senait Abel CRNP [address] [place] [address] Health Maintenance Due Date Last Done Comments [...] filedocumented as of this encounter Care Teams Sap Basis Architect Relationship Specialty Start Date End Date Itzel Argueta MD PCP - General Family Medicine 09/26/12 documented as of this encounter
--- OUTSIDE RECORDS SUMMARY | 2023-10-02 10:56 | External Medical Summary ---
Author Name Unknown Address Unknown Organization [id number]:[place] [facility] [place] [address] [facility] [address] Laboratory Report Ordering Provider Test Date Status CHANTELL MICHELAUSTIN 07/03/2023 10:52:58 Final Observation Date Value Abnormality Reference (Units ) Status SYNC LEUKOCYTES IN BLOOD BY AUTOMATED COUNT 07/03/2023 10:52:58 11.22 Above high normal 4.00-10.80 (K/uL) Final Segs 07/03/2023 10:52:58 77.3 Above high normal 40.0-75.0 (%) Final Lymphs % 07/03/2023 10:52:58 15.8 Below low normal 18.0-42.0 (%) Final Monos 07/03/2023 10:52:58 5.8 1.0-11.0 (%) Final Eosinophils 07/03/2023 10:52:58 0.4 0.0-6.0 (%) Final Basos 07/03/2023 10:52:58 0.3 0.0-2.0 (%) Final Immature Granulocyte, Percent 07/03/2023 10:52:58 0.4 0.0-2.0 (%) Final Absolute Segs 07/03/2023 10:52:58 8.68 Above high normal 1.80-7.70 (K/uL) Final Lymphs, absolute 07/03/2023 10:52:58 1.77 1.00-4.80 (K/ul) Final Monos, Abs 07/03/2023 10:52:58 0.65 0.00-1.10 (K/uL) Final Eos, Abs 07/03/2023 10:52:58 0.04 0.00-0.70 (K/uL) Final Basos, Abs 07/03/2023 10:52:58 0.03 0.00-0.20 (K/uL) Final Immature Granulocytes, Number 07/03/2023 10:52:58 0.05 0.00-0.20 (K/uL) Final Performing Location [facility] [place] [facility] [address] [facility] [address]
--- OUTSIDE RECORDS SUMMARY | 2023-10-02 10:56 | External Medical Summary ---
Author Name Unknown Address Unknown Organization K01:LABORATORY [facility] [place] [address] [place] [address] Laboratory Report Ordering Provider Test Date Status PHIL MENESES 07/03/2023 10:52:58 Final Deficient: <20 ng/mL
Ins ufficient: 20-29 ng/mL
Recommended/Optimum:30-50 ng/mL

Vitamin D intoxication is rare. If suspicious of Vitamin D toxicity, evaluation of serum Calcium and PTH is recommended. Observation Date Value Abnormality Reference (Units ) Status 25-OH Vitamin D total 07/03/2023 10:52:58 41 >19 (ng/mL) Final Performing Location LABORATORY C - [address] [place] [address]
--- OUTSIDE RECORDS SUMMARY | 2023-10-02 10:56 | External Medical Summary ---
Author Name Unknown Address Unknown Organization K0G:LABORATORY [facility] - [address] [place] [address] Laboratory Report Ordering Provider Test Date Status ROLAND MICHEL 07/03/2023 10:52:58 Final Observation Date Value Abnormality Reference (Units ) Status Glucose [Moles/volume] in Serum or Plasma --1 hour post 50 g glucose PO 07/03/2023 10:52:58 95 70-129 (mg/dL) Final Performing Location LABORATORY [facility] - [address] [place] [address]
--- OUTSIDE RECORDS SUMMARY | 2023-10-02 10:56 | External Medical Summary | Summary of Care ---
Author Name Unknown Organization [facility] Address [address] [facility] [place] [address] Phone [phone] Care Team Providers Care Resident Care Aid Name Role Phone Itzel Argueta MD Primary Care Provide r Reason for Visit * Reason Comments Outpatient Testing Encounter Details Date Type Department Care Team (Late st Contact Info) Description 07/03/2023 9:30 AM EDT Laboratory Laboratory, [facility] 132 [facility] [place] [phone] [facility] 132 [facility] [place] [address] related exhaustion and fatigue in first trimester; Normal in second trimester Allergies No known active allergiesdocumented as of [...] 02/13/2023 SVT (supraventricular tachycardia) 02/13/2023 Overview: Per [facility] pre-conception consult 2022: Recommendations: Limit caffeine. Hydrate 3 liters daily. Seek immediate medical attention in the event of cardiac symptomatology, such as worsening respiratory distress on exertion, chest pain, palpitations, or syncope. Consider notifying anesthesia upon patient's presentation to L&D for delivery. delivery reserved for obstetric indications. If symptomatic episodes increase, consider starting beta blockter therapy. Metoprolol is preferred to sotalol. Serial [facility] growth scans if an agent is used. Exposure to beta-blockers during may increase the risk for adverse events in the . If maternal use of a beta-juanpablo is needed, growth should be monitored during and the should be monitored for 48 hours after delivery for bradycardia, hypoglycemia, and respiratory depression. Intracranial hypotension 02/13/2023 Overview: Per [facility] pre-conception consult 2022: -Pt had uncomplicated [...] with patient that although choroid plexus cysts (SHOW HOST/HOSTESS) can be associated with an increased risk for aneuploidy (particularly Trisomy 18), when choroid plexus cysts (SHOW HOST/HOSTESS) are noted in isolation of any other abnormalities for a woman who is at low risk (age less than 35, normal genetic screening) choroid plexus cysts (SHOW HOST/HOSTESS) are considered a normal variant of and [...] money to get more. Never true 04/23/2023 [place] Depression Scale Answer Date Recorded [place] Depression Scale Total 5 12/05/2020 The thought [...] on file documented as of this encounter Plan of Treatment Upcoming Encounters Date Type Department Care Team (Late st Contact Info) Description 07/16/2023 8:30 AM EDT Office Visit Gynecology/Obstetrics [facility] [address] [facility] [place] [address] Ammy Renteria MD [address] [place] [address] [place] [address] Pending Results Name Type Priority Associated Diagnoses Date /Time 25-HYDROXY VITAMIN D Lab Routine related exhaustion and fatigue in first trimester 07/03/2023 10:52 AM EDT CBC WITH WBC DIFFERENTIAL AND ANEMIA REFLEX WORKUP Lab Routine Normal in second trimester 07/03/2023 10:52 AM EDT SYPHILIS ANTIBODY SCREEN WITH REFLEX TO RPR Lab Routine Normal in second trimester 07/03/2023 10:52 AM EDT 50-G GESTATIONAL GLUCOSE, 1 HOUR Lab Routine Normal in second trimester 07/03/2023 10:52 AM EDT ANEMIA CBC Lab Routine Normal in second trimester 07/03/2023 10:52 AM EDT DIFFERENTIAL, AUTOMATED Lab Routine Normal in second trimester 07/03/2023 10:52 AM EDT ANEMIA REFLEX CHEMISTRY HOLD Lab Routine Normal in second trimester 07/03/2023 10:52 AM EDT SYPHILIS ANTIBODY SCREEN Lab Routine Normal in second trimester 07/03/2023 10:52 AM EDT Health Maintenance Due Date Last Done Comments [...] as of this encounter Visit Diagnoses Diagnosis related exhaustion and fatigue in first trimester Other specified complication, antepartum Normal in second trimester documented in this encounter Care Teams Resident Care Aid Relationship Specialty Start Date End Date Itzel Argueta MD PCP - General Family Medicine 09/26/12 documented as of this encounter
--- OUTSIDE RECORDS SUMMARY | 2023-10-02 10:56 | External Medical Summary | Summary of Care ---
Author Name Unknown Organization [facility] Address [address] [place] [address] Phone [phone] Care Team Providers Care Solar Sales Representative Name Role Phone Itzel Argueta MD Primary Care Provide r Reason for Visit * Reason Onset Date Comments Forms Request 05/07/2023 Encounter Details Date Type Department Care Team (Late st Contact Info) Description 05/07/2023 Telephone Gynecology/Obstetrics [facility] [address] [place] [address] Senait Abel CRNP [address] [place] [address] Forms Request Allergies No known active allergiesdocumented [...] respiratory depression. Intracranial hypotension 02/13/2023 Overview: Per [facility] pre-conception consult 2022: -Pt had uncomplicated [...] with patient that although choroid plexus cysts (AUDIT SPEC) can be associated with an increased risk for aneuploidy (particularly Trisomy 18), when choroid plexus cysts (AUDIT SPEC) are noted in isolation of any other abnormalities for a woman who is at low risk (age less than 35, normal genetic screening) choroid plexus cysts (AUDIT SPEC) are considered a normal variant of and [...] money to get more. Never true 04/23/2023 [place] Depression Scale Answer Date Recorded [place] Depression Scale Total 5 12/05/2020 The thought [...] encounter Miscellaneous Notes * Telephone Encounter - Gayla Richards LPN [...] prior to delivery in prep for baby. [phone], spouse Jeannette. * Telephone Encounter - Deanna Galan LPN - 05/07/2023 3:23 PM EST Forms completed and on Senait's desk for signature. * Telephone Encounter - Deanna Galan LPN - 05/07/2023 2:45 PM EST FMLA forms received 05/07/2023 Would pt like forms faxed no, will steel pickler at next visit Does pt need notified when done? no Patient Phone Numbers documented in this encounter Plan of Treatment Upcoming Encounters Date Type Department Care Team (Late st Contact Info) Description 07/03/2023 9:30 AM EDT Laboratory Laboratory, [facility] 132 [facility] [place] [phone] [facility] [address] [place] [address] 07/03/2023 10:00 AM EDT Imaging Radiology [facility] 2nd [facility] [address] [place] [address] 07/03/2023 10:45 AM EDT Office Visit Gynecology/Obstetrics [facility] [address] [place] [address] Senait Abel CRNP [address] [place] [address] Health Maintenance Due Date Last Done Comments [...] filedocumented as of this encounter Care Teams Solar Sales Representative Relationship Specialty Start Date End Date Itzel Argueta MD PCP - General Family Medicine 09/26/12 documented as of this encounter
--- OUTSIDE RECORDS SUMMARY | 2023-10-02 10:56 | External Medical Summary | Summary of Care ---
Author Name Unknown Organization [facility] Address [address] [facility] [place] [address] Phone [phone] Care Team Providers Care Coordinator Mining Products Name Role Phone Itzel Argueta MD Primary Care Provide r Reason for Visit * Reason Onset Date Comments Forms Request 07/03/2023 Encounter Details Date Type Department Care Team (Late st Contact Info) Description 07/03/2023 Telephone Gynecology/Obstetrics [facility] [address] [place] [address] Senait Abel CRNP [address] [place] [address] Forms Request Allergies No known active allergiesdocumented [...] respiratory depression. Intracranial hypotension 02/13/2023 Overview: Per [facility] pre-conception consult 2022: -Pt had uncomplicated [...] with patient that although choroid plexus cysts (OCCUPATIONAL HEALTH TECHNICIAN) can be associated with an increased risk for aneuploidy (particularly Trisomy 18), when choroid plexus cysts (OCCUPATIONAL HEALTH TECHNICIAN) are noted in isolation of any other abnormalities for a woman who is at low risk (age less than 35, normal genetic screening) choroid plexus cysts (OCCUPATIONAL HEALTH TECHNICIAN) are considered a normal variant of and [...] money to get more. Never true 04/23/2023 [place] Depression Scale Answer Date Recorded [place] Depression Scale Total 5 12/05/2020 The thought [...] 07/16/2023 8:30 AM EDT [facility] [address] [place] [address] Ammy Renteria MD [address] [place] [address] [place] [address] Health Maintenance Due Date Last Done Comments [...] filedocumented as of this encounter Care Teams Coordinator Mining Products Relationship Specialty Start Date End Date Itzel Argueta MD PCP - General Family Medicine 09/26/12 documented as of this encounter
--- OUTSIDE RECORDS SUMMARY | 2023-10-02 10:56 | External Medical Summary ---
Author Name Unknown Address Unknown Organization K01:LABORATORY [facility] [place] [address] [place] [address] Laboratory Report Ordering Provider Test Date Status CHANTELL MICHELAUSTIN 07/03/2023 10:52:58 Final Observation Date Value Abnormality Reference (Units ) Status WBC, Total 07/03/2023 10:52:58 11.22 Above high normal 4 .00-10.80 (K/uL) Final RBC 07/03/2023 10:52:58 4.46 3.85-5.15 (M/uL) Final Hemoglobin 07/03/2023 10:52:58 14.3 12.0-15.3 (g/dL) Final Anemia reflex testing trigge rs on a HGB < 12.0 for Females and HGB < 13.0 for Males in accordance with the WHO Anemia Guidelines
Anemia reflex testing triggers on a HGB < 12.0 for Females and HGB < 13.0 for Males in accordance with the WHO Anemia Guidelines HCT 07/03/2023 10:52:58 38.9 36.0-45.2 (%) Final MCV 07/03/2023 10:52:58 87.2 81.5-97.5 (fL) Final MCH 07/03/2023 10:52:58 32.1 27.0-34.0 (pg) Final MCHC 07/03/2023 10:52:58 36.8 32.0-36.0 (g/dL) Final RDW 07/03/2023 10:52:58 13.4 11.5-15.5 (%) Final Platelets 07/03/2023 10:52:58 243 140-400 (K /uL) Final MPV 07/03/2023 10:52:58 10.6 6.6-11.1 ( fL) Final Nucleated erythrocytes/100 leukocytes [Ratio] in Blood by Automated count 07/03/2023 10:52:58 0 <=0 (/100 WBCs) [facility] Performing Location LABORATORY [facility] - [address] [facility] [address]
--- OUTSIDE RECORDS SUMMARY | 2023-10-02 10:57 | External Medical Summary ---
Author Name Unknown Address Unknown Organization : Laboratory Report Ordering Provider Test Date Status JOVANA MARTINEZ 05/07/2023 10:42:29 Final Observation Date Value Abnormality Reference (Units ) Status INTERPRETATION 05/07/2023 10:42:29 SEE BELOW Final Screen negative for open NTD . RISK FOR ONTD 05/07/2023 10:42:29 1:2660 Final CALC'D GESTATIONAL AGE 0105/07/2023 10:42:29 19.9 Final AFP, SERUM 05/07/2023 10:42:29 64.3 (ng/mL) Final AFP MOM 05/07/2023 10:42:29 1.11 Final Reference Range:
NTD <2 .50
IDD <1.90
TWINS <4.00
TWINS IDD <3.50
TRIPLETS <4.50
The AFP test result indicates that this patient is
screen negative for open NTD. It should be noted
that normal test results can never guarantee the
of a normal baby and that 2-3% of newborns
have some type of physical or mental defect, many
of which are undetectable through any known
diagnostic technique.
This is a screening test, not a diagnostic test.
This risk assessment report is based in part on
demographic data provided by the ordering
physician. Please notify the laboratory promptly
if any data are incorrect. For assistance with
recalculations, please call your local [facility] laboratory. For assistance with
interpretation of these results, please contact
your Local [facility] genetic counselor or
call [phone] ([phone]).
Interpretive Cutoffs
Screen Positive for Open NTD:
> or = 2.50 adjusted MOM
> or = 1.90 adjusted MOM for insulin-dependent diabetics
> or = 4.00 adjusted MOM for twins
> or = 3.50 adjusted MOM for twins insulin-dependent diabetics
> or = 4.50 adjusted MOM for triplets
For additional information, please refer to
http://LAN-Power.PanGenX/faq/LPA14f1
(This link is being provided for
informational/educational purposes only.) DATE OF 05/07/2023 10:42:29 1990 Final COLLECTION DATE 05/07/2023 10:42:29 05/07/2023 Final MATERNAL WEIGHT 05/07/2023 10:42:29 147 (lbs ) Final EST'D DATE OF DELIVERY 05/07/2023 10:42:29 09/25/2023 Final NICOLE DETERMINED BY 05/07/2023 10:42:29 LMP Final MOTHER'S ETHNIC ORIGIN 05/07/2023 10:42:29 WHITE Final NUMBER OF FETUSES 05/07/2023 10:42:29 1 Final INSULIN DEPEND DIABETIC 05/07/2023 10:42:29 N Final REPEAT SPECIMEN 05/07/2023 10:42:29 N Final HX OF NEURAL TUBE DEFECTS 05/07/2023 10:42:29 N Final PREV DOWN SYND 05/07/2023 10:42:29 N Final DONOR EGG 05/07/2023 10:42:29 N Final DONOR AGE: EGG RETRIEVAL 05/07/2023 10:42:29 NOT GIVEN Final Test performed by [facility]
[address],
[place] [address]

Die Set Up Worker: Rebecca Workman MD,PHD,NURY
Test Reported by Ambika Britt,
[facility],
[address] [place], [place]
Josafat Mejia M.D., Ph.D., Director of Laboratories
, [facility] [id number] Performing Location
--- OUTSIDE RECORDS SUMMARY | 2023-10-02 10:57 | External Medical Summary | Summary of Care ---
Author Name Unknown Organization [facility] Address [address] [place] [address] Phone [phone] Care Team Providers Care Arc Air Operator Name Role Phone Itzel Argueta MD Primary Care Provide r Reason for Visit * Reason Onset Date Comments Forms Request 05/07/2023 Encounter Details Date Type Department Care Team (Late st Contact Info) Description 05/07/2023 Telephone Gynecology/Obstetrics [facility] [address] [place] [address] Senait Abel CRNP [address] [place] [address] Forms Request Allergies No known active allergiesdocumented as of this encounter (statuses as of 05/07/2023) Medications Medication Sig Dispensed Refills Start Date End Date Status 1 30-0.975-200 MG Oral Capsule Take 1 Cap by mouth daily. 0 Active Vitamin B-6 25 MG Oral Tablet Take by mouth. 0 Active Vitamin D (Cholecalciferol) 10 MCG (400 UNIT) Oral Tablet Take by mouth. 0 Active documented as of this encounter (statuses as of 05/07/2023) Active Problems Problem Noted Date Diagnosed Date [...] depression. Intracranial hypotension 02/13/2023 Overview: Per [facility] pre-conception consult 2022: -Pt had uncomplicated epidural placement in last -Routine obstetric management; valsalva permitted during second stage (Eur J Obstet Gynecol Reprod Biol. 2015 Jalil;189:113-4). Estimated Date of Delivery Comme nts Yes 09/25/2023 Based on last me nstrual period of 12/19/2022 (Exact Date) documented as of this encounter (statuses as of 05/07/2023) Resolved Problems Problem Noted Date Diagnosed Date [...] with patient that although choroid plexus cysts (CALENDERING SUPERVISOR) can be associated with an increased risk for aneuploidy (particularly Trisomy 18), when choroid plexus cysts (CALENDERING SUPERVISOR) are noted in isolation of any other abnormalities for a woman who is at low risk (age less than 35, normal genetic screening) choroid plexus cysts (CALENDERING SUPERVISOR) are considered a normal variant of and [...] as of this encounter (statuses as of 05/07/2023) Immunizations Name Administration Dates Next Due COVID-19 [...] money to get more. Never true 04/23/2023 [place] Depression Scale Answer Date Recorded [place] Depression Scale Total 5 12/05/2020 The thought [...] Would pt like forms faxed no, will warp picker at next visit Does pt need notified when done? no Patient Phone Numbers documented in this encounter Plan of Treatment Upcoming Encounters Date Type Department Care Team (Late st Contact Info) Description 06/04/2023 10:15 AM EST Office Visit Gynecology/Obstetrics [facility] [address] [place] [address] Senait Abel CRNP [address] [place] [address] Health Maintenance Due Date Last Done Comments [...] filedocumented as of this encounter Care Teams Arc Air Operator Relationship Specialty Start Date End Date Itzel Argueta MD PCP - General Family Medicine 09/26/12 documented as of this encounter
--- OUTSIDE RECORDS SUMMARY | 2023-10-02 10:57 | External Medical Summary | Summary of Care ---
Author Name Unknown Organization [facility] Address [address] [address] Phone [phone] Care Team Providers Care Otr Owner Operator Name Role Phone Itzel Argueta MD Primary Care Provide r Reason for Visit * Reason Comments Return Visit Encounter Details Date Type Department Care Team ([facility] Contact Info) Description 05/07/2023 10:15 AM EST Office Visit Gynecology/Obstetric s Claude Jensen [address] [place] [address] Senait Abel CRNP [address] [place] [address] Normal in second trimester*; SVT (supraventricular tachycardia); Intracranial hypotension Allergies [...] 02/13/2023 SVT (supraventricular tachycardia) 02/13/2023 Overview: Per [facility] pre-conception consult 2022: Recommendations: Limit caffeine. Hydrate 3 liters daily. Seek immediate medical attention in the event of cardiac symptomatology, such as worsening respiratory distress on exertion, chest pain, palpitations, or syncope. Consider notifying anesthesia upon patient's presentation to L&D for delivery. delivery reserved for obstetric indications. If symptomatic episodes increase, consider starting beta blockter therapy. Metoprolol is preferred to sotalol. Serial [facility] growth scans if an agent is used. Exposure to beta-blockers during may increase the risk for adverse events in the . If maternal use of a beta-juanpablo is needed, growth should be monitored during and the should be monitored for 48 hours after delivery for bradycardia, hypoglycemia, and respiratory depression. Intracranial hypotension 02/13/2023 Overview: Per [facility] pre-conception consult 2022: -Pt had uncomplicated epidural [...] patient that although choroid plexus cysts (CERTIFIED SUBSTANCE ABUSE COUNSELOR) can be associated with an increased risk for aneuploidy (particularly Trisomy 18), when choroid plexus cysts (CERTIFIED SUBSTANCE ABUSE COUNSELOR) are noted in isolation of any other abnormalities for a woman who is at low risk (age less than 35, normal genetic screening) choroid plexus cysts (CERTIFIED SUBSTANCE ABUSE COUNSELOR) are considered a normal variant of and [...] money to get more. Never true 04/23/2023 [place] Depression Scale Answer Date Recorded [place] Depression Scale Total 5 12/05/2020 The thought [...] Sign Reading Time Taken Comments Blood Pressure 102/74 05/07/2023 9:52 AM EST Pulse - - Temperature - - Respiratory Rate - - Oxygen Saturation - - Inhaled Oxygen Concentration - - Weight 68.5 kg (151 lb) 05/07/2023 9:52 AM EST Height 157.5 cm (5' 2") 05/07/2023 9:52 AM EST Body Mass Index 27.62 05/07/2023 9:52 AM EST documented in this encounter Progress Notes * Senait Abel CRNP - 05/07/2023 10:30 AM EST 19w6d Daughter was dx with pinworms yesterday. Hospital Librarian recommended whole family be tested. Reviewed active ingredient in medication, safe to use in . No other concerns. +FM. No bleeding or LOF. Anatomy u/s today. ABDI Matute * Deanna Galan LPN - 05/07/2023 10:03 AM EST 19w6d Had anatomy US this morning. Questioning if tx for pinworms is safe in --Cooper's pinworm medication. documented in this encounter Plan of Treatment Upcoming Encounters Date Type Department Care Team (Late st Contact Info) Description 05/07/2023 11:40 AM EST Laboratory Laboratory, [facility] [address] [place] [id number] [facility] [address] [place] [address] Arrived 06/04/2023 10:15 AM EST Office Visit Gynecology/Obstetrics [facility] [address] [place] [address] Senait Abel CRNP [address] [place] [address] Health Maintenance Due Date Last Done Comments [...] brain documented in this encounter Care Teams Otr Owner Operator Relationship Specialty Start Date End Date Itzel Argueta MD PCP - General Family Medicine 09/26/12 documented as of this encounter
--- OUTSIDE RECORDS SUMMARY | 2023-10-02 10:57 | External Medical Summary | Summary of Care ---
Author Name Unknown Organization [facility] Address [address] [place] [facility] [place] [address] Phone [phone] Care Team Providers Care Aircraft Shipping Checker Name Role Phone Itzel Argueta MD Primary Care Provide r Reason for Visit * Reason Comments Outpatient Testing Encounter Details Date Type Department Care Team (Late st Contact Info) Description 05/07/2023 11:40 AM EST Laboratory Laboratory, [facility] [address] [facility] [place] [address] [facility] [address] [facility] [place] [address] Arrived Allergies No known active allergiesdocumented as of [...] respiratory depression. Intracranial hypotension 02/13/2023 Overview: Per [facility] pre-conception consult 2022: -Pt had [...] with patient that although choroid plexus cysts (EXTRACTIVE METALLURGIST) can be associated with an increased risk for aneuploidy (particularly Trisomy 18), when choroid plexus cysts (EXTRACTIVE METALLURGIST) are noted in isolation of any other abnormalities for a woman who is at low risk (age less than 35, normal genetic screening) choroid plexus cysts (EXTRACTIVE METALLURGIST) are considered a normal variant of and [...] money to get more. Never true 04/23/2023 [place] Depression Scale Answer Date Recorded [place] Depression Scale Total 5 12/05/2020 The thought [...] Office Visit Gynecology/Obstetrics Claude Jensen [address] [place] [address] Senait Abel CRNP [address] [place] [address] Health Maintenance Due Date Last Done Comments [...] filedocumented as of this encounter Care Teams Aircraft Shipping Checker Relationship Specialty Start Date End Date Itzel Argueta MD PCP - General Family Medicine 09/26/12 documented as of this encounter
--- OUTSIDE RECORDS SUMMARY | 2023-10-02 10:57 | External Medical Summary | Summary of Care ---
Author Name Unknown Organization [facility] Address [address] [place] [address] Phone [phone] Care Team Providers Care Appeals Assistant Name Role Phone Itzel Argueta MD Primary Care Provide r Reason for Visit * Reason Comments Return Visit Encounter Details Date Type Department Care Team ([facility] Contact Info) Description 05/07/2023 10:15 AM EST Office Visit Gynecology/Obstetric s Claude Jensen [address] [place] [address] Senait Abel CRNP [address] [place] [address] Normal in second trimester*; SVT (supraventricular tachycardia); [...] 02/13/2023 SVT (supraventricular tachycardia) 02/13/2023 Overview: Per [facility] pre-conception consult 2022: Recommendations: [...] therapy. Metoprolol is preferred to sotalol. Serial [facility] growth scans if an agent is used. Exposure to beta-blockers during may increase the risk for adverse events in the . If maternal use of a beta-juanpablo is needed, growth should be monitored during and the should be monitored for 48 hours after delivery for bradycardia, hypoglycemia, and respiratory depression. Intracranial hypotension 02/13/2023 Overview: Per [facility] pre-conception consult 2022: -Pt [...] with patient that although choroid plexus cysts (DOOR MANAGER) can be associated with an increased risk for aneuploidy (particularly Trisomy 18), when choroid plexus cysts (DOOR MANAGER) are noted in isolation of any other abnormalities for a woman who is at low risk (age less than 35, normal genetic screening) choroid plexus cysts (DOOR MANAGER) are considered a normal variant of [...] money to get more. Never true 04/23/2023 [place] Depression Scale Answer Date Recorded [place] Depression Scale Total 5 12/05/2020 The thought [...] 19w6d Daughter was dx with pinworms yesterday. Criminal Research Specialist recommended whole family be tested. Reviewed active [...] 06/04/2023 10:15 AM EST Office Visit [facility]cology[facility]st[facility] [address] [place] [address] Senait Abel CRNP [address] [place] [address] Health Maintenance Due Date Last Done Comments [...] brain documented in this encounter Care Teams Appeals Assistant Relationship Specialty Start Date End Date Itzel Argueta MD PCP - General Family Medicine 09/26/12 documented as of this encounter
--- OUTSIDE RECORDS SUMMARY | 2023-10-02 10:57 | External Medical Summary | Summary of Care ---
Author Name Unknown Organization [facility] Address [address] [address] Phone [phone] Care Team Providers Care Insulation And Flooring Assembler Name Role Phone Itzel Argueta MD Primary Care Provide r Encounter Details Date Type Department Care Team (Late st Contact Info) Description 05/07/2023 Telephone Gynecology/Obstetrics [facility] [address] [facility] [place] [address] Senait Abel CRNP [address] [place] [address] Allergies No known active allergiesdocumented as of [...] 02/13/2023 SVT (supraventricular tachycardia) 02/13/2023 Overview: Per [facility] pre-conception consult 2022: Recommendations: Limit caffeine. [...] with patient that although choroid plexus cysts (OPERATIONS TEAM LEADER) can be associated with an increased risk for aneuploidy (particularly Trisomy 18), when choroid plexus cysts (OPERATIONS TEAM LEADER) are noted in isolation of any other abnormalities for a woman who is at low risk (age less than 35, normal genetic screening) choroid plexus cysts (OPERATIONS TEAM LEADER) are considered a normal variant of and [...] money to get more. Never true 04/23/2023 [place] Depression Scale Answer Date Recorded [place] Depression Scale Total 5 12/05/2020 The thought [...] Telephone Encounter - Heike Mccartney RN - 05/07/2023 1:58 PM EST Pt is aware and agreeable. * Telephone Encounter - Senait Abel CRNP - 05/07/2023 1:46 PM EST I appreciate her concern. I reviewed both Up To Date (which I looked at when the question arose at her visit) and the [facility] website. Both stated it was safe in second and third trimesters of . * Telephone Encounter - Marychuy Almaguer LPN - 05/07/2023 12:53 PM EST Pt is calling in with concerns of the medicine she was told she is able to take for pin worms. Pt states she was reassured at her appointment today that she can take the medication then when she leftshe was taking to a friend that told her she was surprised she was told she could take it because when the friend was she was told she was not able to take that medication while . Pt states she does not want you to feel like she is challenging you, she is just wanting reassurance that this is completely safe to take while . Pt can be reached at [phone] Please advise. Marychuy Almaguer LPN documented in this encounter Plan of Treatment Upcoming Encounters Date Type Department Care Team (Late st Contact Info) Description 06/04/2023 10:15 AM EST Office Visit Gynecology[facility]Obst[facility]s [facility] [address] [place] [address] Senait Abel CRNP [address] [place] [address] Health Maintenance Due Date Last Done Comments [...] filedocumented as of this encounter Care Teams Insulation And Flooring Assembler Relationship Specialty Start Date End Date Itzel Argueta MD PCP - General Family Medicine 09/26/12 documented as of this encounter
--- OUTSIDE RECORDS SUMMARY | 2023-10-02 10:57 | External Medical Summary | Summary of Care ---
Author Name Unknown Organization [facility] Address [address] [facility] [address] Phone [phone] Care Team Providers Care Colorectal Surgeon Name Role Phone Itzel Argueta MD Primary Care Provide r Encounter Details Date Type Department Care Team (Late st Contact Info) Description 05/07/2023 Telephone Gynecology/Obstetrics [facility] [address] [facility] [place] [address] Senait Abel CRNP [address] [place] [address] Allergies No known active allergiesdocumented as of [...] 02/13/2023 SVT (supraventricular tachycardia) 02/13/2023 Overview: Per [facility] pre-conception consult 2022: Recommendations: Limit caffeine. [...] with patient that although choroid plexus cysts (CASINO INVESTIGATOR) can be associated with an increased risk for aneuploidy (particularly Trisomy 18), when choroid plexus cysts (CASINO INVESTIGATOR) are noted in isolation of any other abnormalities for a woman who is at low risk (age less than 35, normal genetic screening) choroid plexus cysts (CASINO INVESTIGATOR) are considered a normal variant of and [...] money to get more. Never true 04/23/2023 [place] Depression Scale Answer Date Recorded [place] Depression Scale Total 5 12/05/2020 The thought [...] encounter Miscellaneous Notes * Telephone Encounter - Senait Abel CRNP - 05/07/2023 1:46 PM EST I appreciate her concern. I reviewed both Up To Date (which I looked at when the question arose at her visit) and the [facility] website. Both stated it was safe in [...] while . Pt can be reached at [phone] Please advise. Marychuy Almaguer LPN documented in this encounter Plan of Treatment Upcoming Encounters Date Type Department Care Team (Late st Contact Info) Description 06/04/2023 10:15 AM EST Office [facility] [address] [place] [address] Senait Abel CRNP [address] [place] [address] Health Maintenance Due Date Last Done Comments [...] filedocumented as of this encounter Care Teams Colorectal Surgeon Relationship Specialty Start Date End Date Itzel Argueta MD PCP - General Family Medicine 09/26/12 documented as of this encounter
--- OUTSIDE RECORDS SUMMARY | 2023-10-02 10:57 | External Medical Summary | Summary of Care ---
Author Name Unknown Organization [facility] Address [address] [facility] [address] Phone [phone] Care Team Providers Care Coconut Cooker Name Role Phone Itzel Argueta MD Primary Care Provide r Reason for Visit * Reason Onset Date Comments Forms Request 05/07/2023 Encounter Details Date Type Department Care Team (Late st Contact Info) Description 05/07/2023 Telephone Gynecology/Obstetrics [facility] [address] [place] [address] Senait Abel CRNP [address] [place] [address] Forms Request Allergies No known active allergiesdocumented [...] respiratory depression. Intracranial hypotension 02/13/2023 Overview: Per [facility] pre-conception consult 2022: -Pt had uncomplicated epidural [...] with patient that although choroid plexus cysts (LOOM FIXER SUPERVISOR) can be associated with an increased risk for aneuploidy (particularly Trisomy 18), when choroid plexus cysts (LOOM FIXER SUPERVISOR) are noted in isolation of any other abnormalities for a woman who is at low risk (age less than 35, normal genetic screening) choroid plexus cysts (LOOM FIXER SUPERVISOR) are considered a normal variant of [...] money to get more. Never true 04/23/2023 [place] Depression Scale Answer Date Recorded [place] Depression Scale Total 5 12/05/2020 The thought [...] Claude Jensen [address] [place] [address] Senait Abel CRNP [address] [place] [address] Health Maintenance Due Date Last Done Comments [...] filedocumented as of this encounter Care Teams Coconut Cooker Relationship Specialty Start Date End Date Itzel Argueta MD PCP - General Family Medicine 09/26/12 documented as of this encounter
--- OUTSIDE RECORDS SUMMARY | 2023-10-02 10:57 | External Medical Summary | Summary of Care ---
Author Name Unknown Organization [facility] Address [address] [facility] [place] [address] Phone [phone] Care Team Providers Care Client Services Director Name Role Phone Itzel Argueta MD Primary Care Provide r Encounter Details Date Type Department Care Team (Late st Contact Info) Description 01/18/2023 Telephone Gynecology/Obstetrics [facility] [address] [place], [place] [phone] Syl Hamlin PA-C [address] [place] [address] Allergies No known active allergiesdocumented as of this encounter (statuses as of 04/19/2023) Medications Medication Sig Dispensed Refills Start Date End Date Status 1 30-0.975-200 MG Oral Capsule Take 1 Cap by mouth daily. 0 Active documented as of this encounter (statuses as of 04/19/2023) Active Problems Problem Noted Date Diagnosed Date [...] as of this encounter (statuses as of 04/19/2023) Resolved Problems Problem Noted Date Diagnosed Date [...] with patient that although choroid plexus cysts (POURER BUGGY LADLE) can be associated with an increased risk for aneuploidy (particularly Trisomy 18), when choroid plexus cysts (POURER BUGGY LADLE) are noted in isolation of any other abnormalities for a woman who is at low risk (age less than 35, normal genetic screening) choroid plexus cysts (POURER BUGGY LADLE) are considered a normal variant of and [...] as of this encounter (statuses as of 04/19/2023) Immunizations Name Administration Dates Next Due COVID-19 [...] the money to buy more. Never true 11/07/19 23 Within the past 12 months, t he food you bought just didn't last and you didn't have money to get more. Never true 11/06/2022 [place] Depression Scale Answer Date Recorded [place] Depression Scale Total 5 12/05/2020 The thought [...] encounter Miscellaneous Notes * Telephone Encounter - Deonna Pina OSA - 01/18/2023 10:59 AM EDT Order linked * Telephone Encounter - Deonna Pina OSA - 01/18/2023 10:34 AM EDT Apts scheduled; please send back to me once US order is signed so I can link it to the appointment. * Telephone Encounter - Wilda Diehl LPN - 01/18/2023 9:41 AM EDT Pt called to schedule her first NOB appt. LMP 12/19/22 Pt states she did have a positive UPT on 01/09 and 01/16 Were you using any type of control? None Any bleeding or any severe pelvic pain? none Are you taking any vitamins? Yes By LMP pt is approx 4 wks. Pt will need scheduled after 02/11 Insurance BS Novitaz Please schedule pts NOB and US. documented in this encounter Plan of Treatment Upcoming Encounters Date Type Department Care Team (Late st Contact Info) Description 05/07/2023 8:15 AM EST Imaging Radiology [facility] [address] [place] [address] 05/07/2023 10:15 AM EST Office Visit Gynecology/Obstetrics [facility] [address] [place] [address] Senait Abel CRNP [address] [place] [address] 11/25/2023 10:00 AM EDT Office Visit Gynecology/Obstetrics [facility] [address] [place] [address] Syl Hamlin PA-C [address] [place] [address] Health Maintenance Due Date Last Done Comments [...] as of this encounter Visit Diagnoses Diagnosis examination or test, positive result- Primary state, incidental documented in this encounter Care Teams Client Services Director Relationship Specialty Start Date End Date Itzel Argueta MD PCP - General Family Medicine 09/26/12 documented as of this encounter
--- OUTSIDE RECORDS SUMMARY | 2023-10-02 10:57 | External Medical Summary | Summary of Care ---
Author Name Unknown Organization [facility] Address [address] [facility] [address] Phone [phone] Care Team Providers Care Crude Tester Name Role Phone Itzel Argueta MD Primary Care Provide r Encounter Details Date Type Department Care Team (Late st Contact Info) Description 05/07/2023 Telephone Gynecology/Obstetrics [facility] [address] [facility] [place] [address] Senait Abel CRNP [address] [place] [address] Allergies No known active allergiesdocumented as of [...] 02/13/2023 SVT (supraventricular tachycardia) 02/13/2023 Overview: Per [facility] pre-conception consult 2022: Recommendations: Limit caffeine. Hydrate [...] with patient that although choroid plexus cysts (TREATING ENGINEER HELPER) can be associated with an increased risk for aneuploidy (particularly Trisomy 18), when choroid plexus cysts (TREATING ENGINEER HELPER) are noted in isolation of any other abnormalities for a woman who is at low risk (age less than 35, normal genetic screening) choroid plexus cysts (TREATING ENGINEER HELPER) are considered a normal variant of [...] money to get more. Never true 04/23/2023 [place] Depression Scale Answer Date Recorded [place] Depression Scale Total 5 12/05/2020 The thought [...] encounter Miscellaneous Notes * Telephone Encounter - Marychuy Almaguer LPN [...] while . Pt can be reached at [phone] Please advise. Marychuy Almaguer LPN documented in this encounter Plan of Treatment Upcoming Encounters Date Type Department Care Team (Late st Contact Info) Description 06/04/2023 10:15 AM EST Office Visit Gynecology/Obstetrics Claude Jensen [address] [place] [address] Senait Abel CRNP [address] [place] [address] Health Maintenance Due Date Last Done Comments [...] filedocumented as of this encounter Care Teams Crude Tester Relationship Specialty Start Date End Date Itzel Argueta MD PCP - General Family Medicine 09/26/12 documented as of this encounter
--- OUTSIDE RECORDS SUMMARY | 2023-10-02 10:57 | External Medical Summary | Summary of Care ---
Author Name Unknown Organization [facility] Address [address] [place] [address] Phone [phone] Care Team Providers Care Supervisor Ski Production Name Role Phone Itzel Argueta MD Primary Care Provide r Reason for Visit * Reason Comments Return Visit Encounter Details Date Type Department Care Team ([facility] Contact Info) Description 04/11/2023 3:30 PM EST Office Visit Gynecology/Obstetric s [facility] [address] [place] [address] Syl Hamlin PA-C [address] [place] [id number] Normal in second trimester*; SVT (supraventricular tachycardia); Intracranial hypotension Allergies No known active allergiesdocumented as of this encounter (statuses as of 04/11/2023) Medications Medication Sig Dispensed Refills Start Date End Date Status 1 30-0.975-200 MG Oral Capsule Take 1 Cap by mouth daily. 0 Active Vitamin B-6 25 MG Oral Tablet Take by mouth. 0 Active Vitamin D (Cholecalciferol) 10 MCG (400 UNIT) Oral Tablet Take by mouth. 0 Active documented as of this encounter (statuses as of 04/11/2023) Active Problems Problem Noted Date Diagnosed Date Normal 02/13/2023 SVT (supraventricular tachycardia) 02/13/2023 Overview: Per [facility] pre-conception consult 2022: Recommendations: Limit caffeine. Hydrate 3 liters daily. Seek immediate medical attention in the event of cardiac symptomatology, such as worsening respiratory distress on exertion, chest pain, palpitations, or syncope. Consider notifying anesthesia upon patient's presentation to L&D for delivery. delivery reserved for obstetric indications. If symptomatic episodes increase, consider starting beta blockter therapy. Metoprolol is preferred to sotalol. Serial [facility] growth scans if an agent is used. Exposure to beta-blockers during may increase the risk for adverse events in the . If maternal use of a beta-juanpablo is needed, growth should be monitored during and the should be monitored for 48 hours after delivery for bradycardia, hypoglycemia, and respiratory depression. Intracranial hypotension 02/13/2023 Overview: Per [facility] pre-conception consult 2022: -Pt had uncomplicated epidural placement in last -Routine obstetric management; valsalva permitted during second stage (Eur J Obstet Gynecol Reprod Biol. 2015 Jalil;189:113-4). Estimated Date of Delivery Comme nts Yes 09/25/2023 Based on last me nstrual period of 12/19/2022 (Exact Date) documented as of this encounter (statuses as of 04/11/2023) Resolved Problems Problem Noted Date Diagnosed Date [...] with patient that although choroid plexus cysts (NIGHT GUARD) can be associated with an increased risk for aneuploidy (particularly Trisomy 18), when choroid plexus cysts (NIGHT GUARD) are noted in isolation of any other abnormalities for a woman who is at low risk (age less than 35, normal genetic screening) choroid plexus cysts (NIGHT GUARD) are considered a normal variant of and [...] as of this encounter (statuses as of 04/11/2023) Immunizations Name Administration Dates Next Due COVID-19 [...] money to buy more. Never true 11/07/19 Within the past 12 months, t he food you bought just didn't last and you didn't have money to get more. Never true 11/06/2022 Loco Depression Scale Answer Date Recorded Loco Depression Scale Total 5 12/05/2020 The thought [...] Sign Reading Time Taken Comments Blood Pressure 98/62 04/11/2023 3:42 PM EST Pulse - - Temperature - - Respiratory Rate - - Oxygen Saturation - - Inhaled Oxygen Concentration - - Weight 67.1 kg (148 lb) 04/11/2023 3:42 PM EST Height 157.5 cm (5' 2") 04/11/2023 3:42 PM EST Body Mass Index 27.07 04/11/2023 3:42 PM EST documented in this encounter Progress Notes * Syl Hamlin PA-C - 04/11/2023 4:03 PM EST 16w1d Doing well, nausea improved. Discussed MSAFP for ONTD screen, patient would like to complete. Prefers to defer to next appointment. Reviewed completing prior to 22 weeks. Anatomy with next visit. Denies bleeding, leaking, contractions. Pos quickening. RTC in 4 weeks Syl Hamlin PA-C * Deanna Galan LPN - 04/11/2023 3:47 PM EST 16w1d Denies concerns. documented in this encounter Plan of Treatment Upcoming Encounters Date Type Department Care Team (Late st Contact Info) Description 05/07/2023 8:15 AM EST Imaging Radiology [facility] [address] [place] [phone] 05/07/2023 10:15 AM EST Office Visit Gynecology/Obstetrics [facility] [address] [place] [address] Senait Abel CRNP [address] [place] [phone] 11/25/2023 10:00 AM EDT Office Visit Gynecology/Obstetrics [facility] [address] [place] [address] Syl Hamlin PA-C [address] [place] [address] Scheduled Orders Name Type Priority Associated Diagnoses Orde r Schedule US PREG SINGLE/1ST GEST, 14 WEEKS OR LATER Medical Imaging Routine Normal in second trimester Expected: 05/12/2023 (Approximate), Expires: 05/12/2024 MATERNAL SERUM AFP Lab Routine Normal in second trimester Ordered: 04/11/2023 Health Maintenance Due Date Last Done Comments [...] brain documented in this encounter Care Teams Supervisor Ski Production Relationship Specialty Start Date End Date Itzel Argueta MD PCP - General Family Medicine 09/26/12 documented as of this encounter
--- OUTSIDE RECORDS SUMMARY | 2023-10-02 10:57 | External Medical Summary | Summary of Care ---
Author Name Unknown Organization [facility] Address [address] [place] [address] Phone [phone] Care Team Providers Care Manager Culinary Name Role Phone Itzel Argueta MD Primary Care Provide r Reason for Visit * Reason Onset Date Comments Forms Request 05/07/2023 Encounter Details Date Type Department Care Team (Late st Contact Info) Description 05/07/2023 Telephone Gynecology/Obstetrics [facility] [address] [place] [address] Senait Abel CRNP [address] [place] [address] Forms Request Allergies No known active allergiesdocumented [...] respiratory depression. Intracranial hypotension 02/13/2023 Overview: Per [facility] pre-conception consult 2022: -Pt had uncomplicated [...] with patient that although choroid plexus cysts (LAND EXAMINER) can be associated with an increased risk for aneuploidy (particularly Trisomy 18), when choroid plexus cysts (LAND EXAMINER) are noted in isolation of any other abnormalities for a woman who is at low risk (age less than 35, normal genetic screening) choroid plexus cysts (LAND EXAMINER) are considered a normal variant of and [...] money to get more. Never true 04/23/2023 Hudson Depression Scale Answer Date Recorded Hudson Depression Scale Total 5 12/05/2020 The thought [...] Would pt like forms faxed no, will bean picker machine operator at next visit Does pt need notified when done? no Patient Phone Numbers documented in this encounter Plan of Treatment Upcoming Encounters Date Type Department Care Team (Late st Contact Info) Description 06/04/2023 10:15 AM EST Office Visit Gynecology/Obstetrics [facility] [address] [place] [address] Senait Abel CRNP [address] [place] [phone] Health Maintenance Due Date Last Done Comments [...] filedocumented as of this encounter Care Teams Manager Culinary Relationship Specialty Start Date End Date Itzel Argueta MD PCP - General Family Medicine 09/26/12 documented as of this encounter
[2023-10-02] MEDS: PENICILLIN GK 3 MU in DEXTROSE 5% 100 ML IV PRN (14:52)
[2023-10-02] MEDS: OXYTOCIN 30 UNITS/NSS 30 UNITS/500 ML BAG IV PRN ×2 (14:55→20:43)
[2023-10-02] MEDS: LIDOCAINE 2%/EPINEPHRINE 1:200,000 20 ML PF ONE (18:00)
[2023-10-02] MEDS: fentANYL 2 MCG/ML BUPIVacaine 0.125%-NSS 100ML BAG ONE (18:11)
--- NOTE | 2023-10-02 18:27 | Anesthesiology Consultation ---
Date of Service October 02, 2023 Assessment & Plan Chart Review Chart Review: Acceptable Risk for Labor Epidural Consults Requested none History Height/Weight Height: 5 ft 2 in Weight: 76.204 kg Allergies Allergy/AdvReac Type Severity Reaction Status Date / Time No Known Allergies Allergy Unverified 02/02/15 17:57 Medications Home Medications Medication Instructions Recorded Confirmed Last Taken vits no.124-ferrous fum 1 tab PO DAILY@08 #60 tabs 11/18/20 10/02/23 10/01/23 27 mg iron-folic acid 800 mcg tablet ( Vitamin) Active Medications Generic Name Dose Route Start Last Admin Trade Name Freq PRN Reason Stop Dose Admin Lactated Ringer's 1,000 mls @ 125 mls/hr 10/02/23 09:49 10/02/23 18:13 Lr IV 10/04/23 09:48 125 mls/hr .Q8H PRN Infusion L&D Protocol Protocol Penicillin G Potassium 3 mu/ 106 mls @ 100 mls/hr 10/02/23 12:50 10/02/23 15:56 Dextrose IV 10/12/23 12:49 Infused Q4H PRN Infusion GBS(+) Until Delivery Oxytocin 30 units in 500 mls @ 10 mls/hr 10/02/23 14:14 10/02/23 17:20 Pitocin 30 Units/Nss IV 10/04/23 14:13 0.6 units/hr .Q24H PRN 10 mls/hr Labor Induction/Augmentation Titration Protocol 0.6 UNITS/HR Past Medical History Medical History 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) Intracranial hypotension Dx 2015 r/t presumed spontaneous spinal fluid leak (per neurology, no radiographic evidence but did have strong clinical signs of intracranial hypotension) Kidney stone Past Surgical History Surgical History History of colonoscopy History of radiofrequency ablation procedure for cardiac arrhythmia History of wisdom tooth extraction Social History Smoking Status: Never smoker Do You Dip or Chew Tobacco: No Hx Alcohol Use: No Hx Substance Use: No Physical Exam Vital Signs Last Vital Signs Temp 36.7 C 10/02/23 15:30 Pulse 100 H 10/02/23 18:25 Resp 20 10/02/23 10:55 BP 121/62 10/02/23 18:25 Pulse Ox 100 10/02/23 18:25 Testing Laboratory Results 10/02/23 10:02
[2023-10-02] MEDS: fentaNYL citrate PF 100 MCG/2 ML VIAL ONE (18:31)
[2023-10-02] MEDS ORDERED: ePHEDrine sulfate 50 MG/ML AMP IV PRN (18:34)
[2023-10-02] MEDS ORDERED: diphenhydrAMINE 50 MG/ML VIAL IV PRN (18:34)
[2023-10-02] MEDS ORDERED: ROPIVACAINE 0.5% PF 5 MG/ML 20 ML VIAL EPI PRN (18:34)
[2023-10-02] MEDS ORDERED: NALOXONE HCL 0.4 MG/1 ML VIAL/CARP IV PRN (18:34)
[2023-10-02] MEDS ORDERED: NALOXONE HCL 1 MG in SODIUM CHLORIDE 0.9% 1,000 ML IV PRN (18:34)
[2023-10-02] MEDS ORDERED: SODIUM CHLORIDE 0.9% PF INJ 10 ML VIAL EPI PRN (18:34)
[2023-10-02] MEDS ORDERED: LIDOCAINE 2% MPF LOCAL 5 ML VIAL EPI PRN (18:34)
[2023-10-02] MEDS ORDERED: NALBUPHINE HCL 5 MG in SYRINGE 0 ML IV PRN (18:34)
[2023-10-02] MEDS ORDERED: fentaNYL citrate PF 100 MCG/2 ML VIAL EPI PRN (18:34)
[2023-10-02] MEDS ORDERED: fentANYL 2 MCG/ML BUPIVacaine 0.125%-NSS 100ML BAG EPI PRN (18:34)
[2023-10-02] MEDS ORDERED: BUPIVACAINE 0.25% PF 30 ML VIAL EPI PRN (18:34)
[2023-10-02] MEDS: METHYLERGONOVINE MALEATE 0.2 MG/ML AMP ONE (20:45)
--- NOTE | 2023-10-02 21:03 | Anesthesia Procedure Note ---
Date of Service October 02, 2023 Anesthesia Post Epidural Note Vital Signs Vital Signs: Temp Pulse Resp BP Pulse Ox 36.4 C L 95 H 20 109/79 100 10/02/23 19:00 10/02/23 20:48 10/02/23 10:55 10/02/23 20:24 10/02/23 20:48 Pain Intensity Bilateral Lower Abdomen: Pain Intensity: 8 Notes Mental Status: alert / awake / arousable Nausea / Vomiting: adequately controlled Pain: adequately controlled Airway Patency, RR, SpO2: stable & adequate BP & HR: stable & adequate Hydration State: stable & adequate Neuraxial Anesthesia: was administered and sensory block is resolving Anesthetic Complications: no major complications apparent and Pt Satisfied with anesthetic care Epidural: Removed without complications and With tip intact
[2023-10-02] MEDS ORDERED: bisacodyL 10 MG SUPP PR PRN (21:33)
[2023-10-02] MEDS ORDERED: ACETAMINOPHEN W/CODEINE #3 1 TAB PO PRN (21:33)
[2023-10-02] MEDS ORDERED: HYDROCORTISONE ACETATE 25 MG SUPP PR PRN (21:33)
[2023-10-02] MEDS ORDERED: OXYTOCIN 30 UNITS/NSS 30 UNITS/500 ML BAG IV PRN (21:33)
[2023-10-02] MEDS ORDERED: oxyCODONE/ACETAMINOPHEN 5mg/325mg TAB PO PRN (21:33)
--- NOTE | 2023-10-02 21:38 | Delivery Summary ---
Vaginal Delivery Summary Date of Service October 02, 2023 Vaginal Delivery Summary Patient is a 3 para 2 with 1 spontaneous AB. Brought in for induction at 41 weeks gestation. Group B strep positive screen. Patient was 2 to 3 cm on admission. Patient was given 50 mcg of Cytotec p.o. Followed by IV Pitocin. IV Pitocin was continued and gradually increased. When she got to be about 5 to 6 cm patient requested and received epidural for pain control. Membranes ruptured's spontaneously. Patient went to full dilatation pushed out a live via direct occiput anterior position over an intact perineum. Following delivery there was a left sulcus laceration which was noted. And this was repaired with a running 2-0 Vicryl. Badge exam including rectovaginal examination revealed no hematoma formation or sponges in the vagina. Quantitative blood loss was 212 mL. Patient received usual penicillin prophylaxis earlier in her labor. Patient tolerated delivery well.
[2023-10-02] MEDS: BENZOCAINE 20% SPRY 85 APPLN/85 GM CAN EXT PRN (23:15)
[2023-10-03] MEDS: IBUPROFEN 600 MG TAB PO PRN (06:10)
[2023-10-03 06:39] LABS: Hematocrit (blood only) 39.2 % (37.0-47.0); Hemoglobin 14.4 g/dl (12.0-16.0); Mean Corpuscular Hemoglobin 30.8 pg (25.0-34.0); Mean Corpuscular Hgb Conc 36.7 g/dL (32.0-36.0); Mean Corpuscular Volume 83.9 fL (80.0-100.0); Mean Platelet Volume 10.7 fL (9.4-12.4); Platelet Count 205 K/uL (130-400); RDW Coefficient of Variation 13.5 % (11.5-14.5); RDW Standard Deviation 40.8 fL (36.4-46.3); Red Blood Count 4.67 M/uL (4.20-5.40); White Blood Count 21.08 K/ul (4.8-10.8)
[2023-10-03] MEDS: METHYLERGONOVINE MALEATE 0.2 MG/ML AMP IM ONE (06:42)
[2023-10-03] MEDS: BUPIVACAINE 0.25% PF 30 ML VIAL ONE (07:42)
[2023-10-03] MEDS: BUPIVACAINE 0.25% PF 30 ML VIAL EPI STA (07:42)
[2023-10-03] MEDS: SODIUM CHLORIDE 0.9% PF INJ 10 ML VIAL ONE (07:42)
[2023-10-03] MEDS: ePHEDrine sulfate 50 MG/ML AMP ONE (07:42)
[2023-10-03] MEDS: fentaNYL citrate PF 100 MCG/2 ML VIAL EPI STA (07:42)
[2023-10-03] MEDS: DIPHTHER/TETAN/PERTUS Vaccine (Tdap, Adol/Adult) 0.5mL IM ONE (07:43)
[2023-10-03] MEDS: SODIUM CHLORIDE 0.9% PF INJ 10 ML VIAL EPI STA (07:43)
[2023-10-03] MEDS: LIDOCAINE 2%/EPINEPHRINE 1:200,000 20 ML PF EPI STA (07:43)
[2023-10-03] MEDS: DOCUSATE SODIUM 100 MG CAP PO SCH (08:43)
[2023-10-03] MEDS: PRENATAL VITAMIN 1 TAB PO SCH (08:43)
--- NOTE | 2023-10-03 09:41 | Obstetrical Progress Note ---
Date of Service October 03, 2023 Assessment & Plan Admission and Anticipated Discharge Date Admission Date: October 02, 2023 Subjective Patient is seen and examined. She feels well, no complaints. Ambulating without dizziness Voiding without difficulty Tolerating regular diet with out N&V Bleeding is minimal No fever/ chills/ CP/ SOB/ N&V/ Leg pain Breast feeding without problems Vital Signs Temp Pulse Pulse Pulse Resp BP BP 10/03/23 08:00 36.8 C 86 18 106/69 10/03/23 07:17 36.7 C 71 16 102/66 10/03/23 03:40 36.8 C 75 18 101/67 10/03/23 03:23 36.3 C L 71 18 104/68 10/02/23 23:30 36.8 C 89 18 113/67 10/02/23 23:07 89 113/67 10/02/23 22:52 106 H 120/66 10/02/23 22:37 91 H 18 117/56 L 10/02/23 22:22 88 114/64 10/02/23 22:08 95 H 18 123/67 10/02/23 21:53 18 10/02/23 21:53 18 Pulse Ox O2 Del Method 10/03/23 08:00 98 Room Air 10/03/23 07:17 97 Room Air 10/03/23 03:40 99 Room Air 10/03/23 03:23 10/02/23 23:30 10/02/23 23:07 10/02/23 22:52 10/02/23 22:37 10/02/23 22:22 10/02/23 22:08 10/02/23 21:53 10/02/23 21:53 Lab Results 10/02/23 10/03/23 Range/Units 10:02 06:18 WBC 14.20 H 21.08 H (4.8-10.8) K/ul RBC 4.62 4.67 (4.20-5.40) M/uL Hgb 14.1 14.4 (12.0-16.0) g/dl Hct 38.3 39.2 (37.0-47.0) % MCV 82.9 83.9 (80.0-100.0) fL MCH 30.5 30.8 (25.0-34.0) pg MCHC 36.8 H 36.7 H (32.0-36.0) g/dL RDW Std Deviation 40.2 40.8 (36.4-46.3) fL RDW Coeff of Ananth 13.8 13.5 (11.5-14.5) % Plt Count 219 205 (130-400) K/uL MPV 10.8 10.7 (9.4-12.4) fL PE: General: Alert, orientedx3, NAD Abd: soft, NT, fundus firm, below Umbilicus Perineum intact, Lochia rubra minimal Ext; NT, no edema AP: 32 yo s/p , ppd# 1 VSS Afebrile doing well WBCC elevated, afebrile Repeat CBC in am Continue routine care All questions were answered D/C home tomorrow Results & Data Vital Signs (Past 12 Hours) Vital Signs Temp Pulse Pulse Pulse Resp BP BP 10/03/23 08:00 36.8 C 86 18 106/69 10/03/23 07:17 36.7 C 71 16 102/66 10/03/23 03:40 36.8 C 75 18 101/67 10/03/23 03:23 36.3 C L 71 18 104/68 10/02/23 23:30 36.8 C 89 18 113/67 10/02/23 23:07 89 113/67 10/02/23 22:52 106 H 120/66 10/02/23 22:37 91 H 18 117/56 L 10/02/23 22:22 88 114/64 10/02/23 22:08 95 H 18 123/67 10/02/23 21:53 18 10/02/23 21:53 18 Pulse Ox O2 Del Method 10/03/23 08:00 98 Room Air 10/03/23 07:17 97 Room Air 10/03/23 03:40 99 Room Air 10/03/23 03:23 10/02/23 23:30 10/02/23 23:07 10/02/23 22:52 10/02/23 22:37 10/02/23 22:22 10/02/23 22:08 10/02/23 21:53 10/02/23 21:53
[2023-10-03] MEDS ORDERED: bisacodyL 5 MG TABEC PO SCH (20:00)
[2023-10-03 21:26] VITALS: RESP 18
[2023-10-04 07:53] LABS: Basophils # (auto) 0.05 K/uL (0.00-0.20); Basophils % (auto) 0.3 %; Eosinophils # (auto) 0.14 K/uL (0.00-0.50); Eosinophils % (auto) 0.8 %; Hematocrit (blood only) 37.7 % (37.0-47.0); Hemoglobin 13.7 g/dl (12.0-16.0); Immature Granulocytes # (auto) 0.09 K/uL (0.01-0.20); Immature Granulocytes % (auto) 0.5 %; Lymphocytes # (auto) 2.74 K/uL (1.20-3.40); Lymphocytes % (auto) 16.6 %; Mean Corpuscular Hemoglobin 30.8 pg (25.0-34.0); Mean Corpuscular Hgb Conc 36.3 g/dL (32.0-36.0); Mean Corpuscular Volume 84.7 fL (80.0-100.0); Mean Platelet Volume 10.8 fL (9.4-12.4); Monocytes # (auto) 0.96 K/uL (0.11-0.59); Monocytes % (auto) 5.8 %; Neutrophils # (auto) 12.54 K/uL (1.40-6.50); Platelet Count 202 K/uL (130-400); RDW Coefficient of Variation 13.7 % (11.5-14.5); RDW Standard Deviation 41.9 fL (36.4-46.3); Red Blood Count 4.45 M/uL (4.20-5.40); White Blood Count 16.52 K/ul (4.8-10.8)
[2023-10-04 08:45] VITALS: BP 103/72; TEMP 97.9; O2SAT 96
--- NOTE | 2023-10-04 10:10 | Obstetrical Progress Note ---
Date of Service October 04, 2023 Subjective Ambulation: ambulating normally Voiding: no voiding problems Passing Gas:: Yes Diet Tolerance:: regular diet Lochia:: Small Feeding Type:: breast feeding Current Pain Level(1-10): 0 doing well Physical Exam Constitutional WD/WN, vitals as above Gastrointestinal (Abdomen) Inspection/Auscultation: abdomen normal to inspection Abdomen soft non-tender. fundus firm below U. Skin no rashes, warm and dry Psychiatric A+Ox3, euthymic affect Results & Data Vital Signs (Past 12 Hours) Vital Signs Temp Pulse Pulse Resp BP Pulse Ox O2 Del Method 10/04/23 07:50 36.6 C 88 18 103/72 96 Room Air 10/04/23 00:22 36.5 C 82 18 105/64 Laboratory Results Laboratory Results - last 72 hr 10/02/23 10/03/23 10/04/23 10:02 06:18 07:16 WBC 14.20 H 21.08 H 16.52 H RBC 4.62 4.67 4.45 Hgb 14.1 14.4 13.7 Hct 38.3 39.2 37.7 MCV 82.9 83.9 84.7 MCH 30.5 30.8 30.8 MCHC 36.8 H 36.7 H 36.3 H RDW Std Deviation 40.2 40.8 41.9 RDW Coeff of Ananth 13.8 13.5 13.7 Plt Count 219 205 202 MPV 10.8 10.7 10.8 Immature Gran % (Auto) 0.5 Neut % (Auto) 76.0 Lymph % (Auto) 16.6 Sac % (Auto) 5.8 Eos % (Auto) 0.8 Baso % (Auto) 0.3 Neut # (Auto) 12.54 H Lymph # (Auto) 2.74 Sac # (Auto) 0.96 H Eos # (Auto) 0.14 Baso # (Auto) 0.05 Immature Gran # (Auto) 0.09
[2023-10-04 10:27] VITALS: PULSE 82
== END 2023-10-04 12:00 | disposition home or self-care (01) | DRG 807 ==
LOC: 4S1 07:45 → 4E2 23:55
DX: O70.0 First degree perineal laceration during delivery; Z3A.41 41 weeks gestation of pregnancy; O99.824 Streptococcus B carrier state complicating childbirth; O48.0 Post-term pregnancy; Z37.0 Single live birth